=== PATIENT | male | born 1930 | race Caucasian/White ===

== ENCOUNTER → 2017-05-16 | Outpatient (CLI) | payer OTHER ==
[~2017-05-16] MED LIST: ADENOSINE 60 MG in GIVE UN-DILUTED 0 ML IV ONE; ADENOSINE 90 MG/30 ML INJ IV ONE; ATEN-60 PO; HYDR-4663 PO; WARF5TAB71 PO
== END | disposition home or self-care (01) ==
LOC: Rad HDHVI 09:55
PROVIDERS: ATTEND Internal Medicine Cardiovascular Disease
DX: I48.2 Chronic atrial fibrillation (principal); I25.10 Atherosclerotic heart disease of native coronary artery without angina pectoris; G20 Parkinson's disease; I11.0 Hypertensive heart disease with heart failure; I50.30 Unspecified diastolic (congestive) heart failure
CPT/HCPCS: 78452; 93017; 96374; A9500; J0153

== ENCOUNTER → 2017-05-22 | Outpatient (CLI) | payer OTHER ==
[~2017-05-22] MED LIST changes: -ADENOSINE 60 MG in GIVE UN-DILUTED 0 ML IV ONE; -ADENOSINE 90 MG/30 ML INJ IV ONE
== END | disposition home or self-care (01) ==
LOC: Rad HDHVI 13:52
PROVIDERS: ATTEND Internal Medicine Cardiovascular Disease
DX: I48.2 Chronic atrial fibrillation (principal); I11.0 Hypertensive heart disease with heart failure; I50.23 Acute on chronic systolic (congestive) heart failure
CPT/HCPCS: 93306

== ENCOUNTER 2020-03-13 16:50 | Inpatient (IN) | payer OTHER ==
[~2020-03-13] VITALS: Ht 172.7 cm; Wt 66.4 kg
[~2020-03-13 16:50] MED LIST changes: -HYDR-4663 PO; +HYDR-4833 PO
[2020-03-13] MEDS ORDERED: ACETAMINOPHEN 500 MG TAB PO ONE (17:15)
[2020-03-13] MEDS ORDERED: ACETAMINOPHEN 325 MG TAB PO ONE (17:15)
[2020-03-13 17:33] LABS: Hematocrit 39.4 % (41.0-53.0); Mean Corpuscular Hemoglobin 32.8 pg (28.0-32.0); Mean Corpuscular Volume 99.7 fL (80.0-100.0); Platelet Count (auto) 151 10^3/uL (140-450); Red Blood Cells 3.95 10^6/uL (4.5-5.90); Red Cell Distribution Width 12.9 % (11.8-14.3); White Blood Cell 23.2 10^3/uL (4.4-10.8)
[2020-03-13 17:35] LABS: Basophils % (manual) 0 (0.0-2.0); Blast Cells 0; Eosinophils % (manual) 0 (0-7); Metamyelocytes % 0; Monocytes % (manual) 0 (0-12); Myelocytes % 0; Promyelocytes % 0
[2020-03-13 17:47] LABS: Alanine Aminotransferase < 6 U/L (16-61); Albumin 2.7 g/dL (3.4-5.0); Anion Gap 5 (5-15); Aspartate Aminotransferase 23 U/L (15-37); BUN/Creatinine Ratio 23.1; Blood Urea Nitrogen 30 mg/dL (7-18); Calcium 8.2 mg/dL (8.5-10.1); Carbon Dioxide 28 mmol/L (21-32); Chloride 105 mmol/L (98-107); GFR African American 67 mL/min; GFR Non-African American 56 mL/min; Glucose 105 mg/dL (74-106); Magnesium 2.4 mg/dL (1.6-2.6); Sodium 138 mmol/L (136-145)
[2020-03-13 17:52] LABS: Alkaline Phosphatase 79 U/L (45-117); Bilirubin, Total 0.7 mg/dL (0.2-1.0); Total Protein 6.9 g/dL (6.4-8.2)
[2020-03-13 18:00] LABS: Band Neutrophils % (manual) 1; Lymphocytes % (manual) 65 (10.0-50.0); Reactive Lymphocytes 2
[2020-03-13 18:08] LABS: Urine Bacteria NONE SEEN /hpf (None Seen); Urine Blood 2+ /uL (Negative); Urine Hyaline Cast FEW /lpf (0 - 2); Urine Mucus FEW (None Seen); Urine Specific Gravity 1.021 (1.001-1.035); Urine WBC 11 /hpf (0 - 3)
[2020-03-13 18:16] LABS: Lactate Dehydrogenase 278 U/L (87-241)
[2020-03-13 18:27] LABS: CRP High Sensitivity > 19.0 mg/dL (< 0.3)
[2020-03-13] MEDS ORDERED: ACETAMINOPHEN 500 MG TAB PO PRN (19:00)
[2020-03-13] MEDS ORDERED: methylPREDNISolone SOD SUCC 125 MG/2 ML VL IV ONE (19:00)
[2020-03-13] MEDS ORDERED: NITROGLYCERIN 0.4 MG SL TAB SL PRN (19:00)
[2020-03-13] MEDS ORDERED: FUROSEMIDE 40 MG/4 ML VIAL IV ONE (19:00)
[2020-03-13] MEDS ORDERED: LACTULOSE 20Gm/30ML SOLN PO PRN ×2 (19:00)
[2020-03-13] MEDS ORDERED: MORPHINE SULF INJ 2 MG/ML SYRINGE 1ML IV PRN (19:00)
[2020-03-13] MEDS ORDERED: ALBUTEROL SULF 2.5 MG/0.5ML(0.5%) NEB SOLN NEB PRN (19:00)
[2020-03-13] MEDS ORDERED: ALBUTEROL SULF HFA 90MCG INH 200DOSE IN SCH (22:00)
[2020-03-14] MEDS: CLINDAMYCIN 600MG IV 50 ML IV SCH ×4 (01:00→22:25)
[2020-03-14] MEDS: SODIUM CHLOR 0.9% PF (SALINE LOCK) 10ML VIAL/SYR IV SCH ×4 (01:01→22:25)
[2020-03-14] MEDS: ENOXAPARIN SOD 80 MG/0.8ML SYRINGE SC SCH ×2 (01:02→09:54)
[2020-03-14] MEDS: CARVEDILOL 3.125 MG TAB PO SCH ×3 (01:02→22:00)
[2020-03-14 08:38] LABS: Hematocrit 41.2 % (41.0-53.0); Hemoglobin 13.8 g/dL (13.5-17.5); Mean Corpuscular Hemoglobin 33.5 pg (28.0-32.0); Mean Corpuscular Hgb Conc. 33.4 g/dL (32.0-36.0); Mean Corpuscular Volume 100.2 fL (80.0-100.0); Platelet Count (auto) 166 10^3/uL (140-450); Red Blood Cells 4.11 10^6/uL (4.5-5.90); Red Cell Distribution Width 12.8 % (11.8-14.3); White Blood Cell 22.9 10^3/uL (4.4-10.8)
[2020-03-14 08:53] LABS: Band Neutrophils % (manual) 0; Basophils % (manual) 0 (0.0-2.0); Blast Cells 0; Eosinophils % (manual) 0 (0-7); Metamyelocytes % 0; Monocytes % (manual) 0 (0-12); Myelocytes % 0; Promyelocytes % 0
[2020-03-14 08:55] LABS: Albumin 2.6 g/dL (3.4-5.0); Anion Gap 5 (5-15); Blood Urea Nitrogen 37 mg/dL (7-18); Calcium 8.5 mg/dL (8.5-10.1); Carbon Dioxide 30 mmol/L (21-32); Chloride 105 mmol/L (98-107); Glucose 121 mg/dL (74-106); Potassium 3.8 mmol/L (3.5-5.1); Sodium 140 mmol/L (136-145)
[2020-03-14 08:58] LABS: Alanine Aminotransferase 7 U/L (16-61); BUN/Creatinine Ratio 27.6; GFR African American 65 mL/min; GFR Non-African American 54 mL/min
[2020-03-14 09:12] LABS: Alkaline Phosphatase 80 U/L (45-117); Aspartate Aminotransferase 20 U/L (15-37); Bilirubin, Total 0.6 mg/dL (0.2-1.0)
[2020-03-14] MEDS: ZINC SULFATE 220mg CAP or TAB PO SCH (09:54)
[2020-03-14] MEDS: ASCORBIC ACID 1,000 MG TAB PO SCH (09:55)
[2020-03-14] MEDS: CHOLECALCIFEROL (VITD3) 1,000UNIT=25mCg TAB PO SCH (09:56)
[2020-03-14] MEDS ORDERED: levoFLOXacin 500MG 100 ML IV SCH (10:00)
[2020-03-14] MEDS ORDERED: ATEN-60 PO (10:36)
[2020-03-14] MEDS ORDERED: CARB25TA3 PO (10:36)
[2020-03-14 10:44] LABS: Reactive Lymphocytes 2
[2020-03-14 10:45] LABS: Lymphocytes % (manual) 66 (10.0-50.0)
[2020-03-14] MEDS ORDERED: DexAMETHasone 4 MG TAB PO ONE (13:00)
[2020-03-14] MEDS: CARBIDOPA W LEVODOPA 25/100mg TABLET PO SCH ×2 (14:20→22:25)
[2020-03-14] MEDS: FUROSEMIDE 20 MG/2 ML VIAL IV SCH (19:08)
[2020-03-14 19:57] LABS: INR 6.9 (0.9-1.15)
[2020-03-14] MEDS: DOXYCYCLINE 100 MG TAB/CAP PO SCH (22:25)
[2020-03-14] MEDS: DexAMETHasone 4 MG TAB PO SCH (22:25)
--- NOTE | 2020-03-15 01:23 | NUR ---
I WAS CALLED TO BEDSIDE DUE TO PT DESATURATING WHILE SLEEPING ON AN 8L SIMPLE MASK. HE WAS CHANGED OVER TO A 10L OXYMIZER AND TOLERATING IT WELL. WILL CONTINUE TO MONITOR. Addendum: 03/15/20 at 0128 by HARI MURRAY RT Amended: Links added.
[2020-03-15] MEDS: FUROSEMIDE 20 MG/2 ML VIAL IV SCH ×2 (06:08→18:46)
[2020-03-15] MEDS: SODIUM CHLOR 0.9% PF (SALINE LOCK) 10ML VIAL/SYR IV SCH ×3 (06:08→22:00)
[2020-03-15] MEDS: CLINDAMYCIN 600MG IV 50 ML IV SCH (06:08)
[2020-03-15] MEDS: CARBIDOPA W LEVODOPA 25/100mg TABLET PO SCH ×2 (06:12→14:40)
--- NOTE | 2020-03-15 07:35 | NUR ---
Respiratory note: PT in ER bed 4 in isolation room due to COVID-19 precautions. HR 116, RR 30, SPO2 92% on 12lpm oxymizer, tolerating well. Pt laying comfortably in bed, does not appear to in any distress. RN at bedside. Pt connected to bedside monitor. Will continue to monitor.
[2020-03-15 09:26] LABS: Hematocrit 41.7 % (41.0-53.0); Hemoglobin 13.8 g/dL (13.5-17.5); Mean Corpuscular Hemoglobin 32.9 pg (28.0-32.0); Mean Corpuscular Hgb Conc. 33.2 g/dL (32.0-36.0); Platelet Count (auto) 216 10^3/uL (140-450); Red Blood Cells 4.21 10^6/uL (4.5-5.90); Red Cell Distribution Width 12.8 % (11.8-14.3); White Blood Cell 28.1 10^3/uL (4.4-10.8)
[2020-03-15 09:30] LABS: Band Neutrophils % (manual) 0; Basophils % (manual) 0 (0.0-2.0); Blast Cells 0; Eosinophils % (manual) 0 (0-7); Metamyelocytes % 0; Monocytes % (manual) 0 (0-12); Myelocytes % 0; Promyelocytes % 0
[2020-03-15 09:39] LABS: Albumin 2.8 g/dL (3.4-5.0); Anion Gap 7 (5-15); Blood Urea Nitrogen 48 mg/dL (7-18); Calcium 8.9 mg/dL (8.5-10.1); Carbon Dioxide 28 mmol/L (21-32); Chloride 104 mmol/L (98-107); Glucose 127 mg/dL (74-106); Magnesium 2.6 mg/dL (1.6-2.6); Potassium 3.4 mmol/L (3.5-5.1); Sodium 139 mmol/L (136-145)
[2020-03-15] MEDS: ZINC SULFATE 220mg CAP or TAB PO SCH (09:43)
[2020-03-15 09:44] LABS: Partial Thromboplastin Time 66.2 sec (23.64-32.05)
[2020-03-15 09:48] LABS: Alanine Aminotransferase 8 U/L (16-61); Alkaline Phosphatase 82 U/L (45-117); Aspartate Aminotransferase 21 U/L (15-37); BUN/Creatinine Ratio 32.4; Bilirubin, Total 0.6 mg/dL (0.2-1.0); Creatine Kinase IFCC 146 U/L (39-308); GFR African American 58 mL/min; GFR Non-African American 48 mL/min; Lactate Dehydrogenase 246 U/L (87-241); Phosphorus 3.3 mg/dL (2.5-4.90); Total Protein 7.2 g/dL (6.4-8.2); Uric Acid 7.6 mg/dL (3.5-7.2)
[2020-03-15 09:50] LABS: INR > 8.0 (0.9-1.15)
[2020-03-15] MEDS: CARVEDILOL 3.125 MG TAB PO SCH (10:22)
[2020-03-15] MEDS: DOXYCYCLINE 100 MG TAB/CAP PO SCH (10:23)
[2020-03-15] MEDS: CHOLECALCIFEROL (VITD3) 1,000UNIT=25mCg TAB PO SCH (10:23)
[2020-03-15] MEDS: DexAMETHasone 4 MG TAB PO SCH (10:23)
[2020-03-15] MEDS: ASCORBIC ACID 1,000 MG TAB PO SCH (10:23)
[2020-03-15] MEDS ORDERED: VANCOMYCIN PER PHARMACY 0 MG IV SCH (10:30)
[2020-03-15] MEDS ORDERED: phytonadione 10 MG in SODIUM CHL 0.9% 50 ML IV ONE (10:30)
[2020-03-15] MEDS ORDERED: LACTATED RINGER'S 1,000 ML IV ONE (10:45)
[2020-03-15] MEDS ORDERED: POTASSIUM CHL 20 Meq TABLET PO ONE (10:45)
[2020-03-15 12:23] LABS: Lymphocytes % (manual) 53 (10.0-50.0); Reactive Lymphocytes 1
[2020-03-15] MEDS: HYDROCORTISONE SOD SUCC 100 MG/2ML INJ VIAL IV SCH ×2 (13:15→18:26)
[2020-03-15] MEDS: MEROPENEM 1GM IVPB 100 ML IV SCH (13:29)
[2020-03-15] MEDS: SODIUM CHLORIDE 0.9% 1,000 ML IV SCH (13:29)
[2020-03-15] MEDS: VANCOMYCIN 1GM/250ML 250 ML IV SCH (14:40)
--- NOTE | 2020-03-15 17:22 | NUR ---
WOUND CARE NOTE: Wound care in to see patient per wound care request regarding sacral wound that are noted present on admission. ED nurse took photograph of patient's wound upon admission for reference. Patient is 89 years old male with admitting diagnosis of Pna, Heart Failure. Patient is resting in ED Rm. #4. Patient is awake, alert and able to follow direction. Patient is in no stated pain at this time and he appears to be in no pain using Keller Cobb Faces pain Scale. He's able to assist in turning and repositioning and his Shan score is 15. Noted patient's L distal sacrum has 2x1.2cm open full thickness wound with no measurable depth. Wound bed is red with yellow, lily wound with non-blanchable erythema with multi skin erosion to distal Rt and Lt buttocks. 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 Lily care given, applied Z Guard cream and covered with Opti foam gentle dressing. New photograph of wounds are taken for reference. Patient's Rt nose bridge also noted with redness with the small oval shape of of eye glasses at nose bridge area, area is clean and dry, left open to air. Patient tolerated, repositioned patient for comfort. RECOMMENDATION: Nursing to continue with BID/PRN cleaning and application of Z Guard cream sacral, buttocks, per MD order, Dietary consult, frequent turning and repositioning schedule as condition permits, redistribute pressure points with pillows, air mattress (ordered), frequent lily care/check, keep clean and dry, elevate heels on pillows, continue monitoring by wound care while patient is hospitalized. Addendum: 03/15/20 at 1830 by Martine Kahn RN Amended: Links added.
--- NOTE | 2020-03-15 17:55 | NUR ---
AIR MATTRESS: Air mattress ordered at [facility]. ETA 03/15/20 @ 2351. Reference #[id number]. Please call Douglas Maurice at if needed to follow up.
--- NOTE | 2020-03-15 19:50 | NUR ---
Respiratory note: AT BEDSIDE FOR OXYGEN ASSESSMENT. PT ON 11L OXYMIZER, SPO2 NOTED BETWEEN 97-98%. PT TITRATED TO 10L ON OXYMIZER, SPO2 NOTED BETWEEN 92-94%. PT REMAINS ON 10L OXYMIZER, RN AWARE. WILL CONTINUE TO MONITOR.
[2020-03-16] MEDS: MEROPENEM 1GM IVPB 100 ML IV SCH ×3 (00:29→23:05)
[2020-03-16] MEDS: HYDROCORTISONE SOD SUCC 100 MG/2ML INJ VIAL IV SCH ×3 (00:29→11:09)
[2020-03-16] MEDS: SODIUM CHLORIDE 0.9% 1,000 ML IV SCH ×2 (02:02→10:41)
[2020-03-16] MEDS: FUROSEMIDE 20 MG/2 ML VIAL IV SCH ×2 (06:47→17:39)
[2020-03-16] MEDS: SODIUM CHLOR 0.9% PF (SALINE LOCK) 10ML VIAL/SYR IV SCH ×3 (06:47→22:20)
[2020-03-16] MEDS: CARBIDOPA W LEVODOPA 25/100mg TABLET PO SCH ×4 (06:48→22:21)
[2020-03-16] MEDS: ZINC SULFATE 220mg CAP or TAB PO SCH (07:36)
[2020-03-16] MEDS: CARVEDILOL 3.125 MG TAB PO SCH ×2 (07:36)
[2020-03-16] MEDS: POTASSIUM CHL 20 Meq TABLET PO SCH (07:36)
[2020-03-16] MEDS: CHOLECALCIFEROL (VITD3) 1,000UNIT=25mCg TAB PO SCH (07:37)
[2020-03-16] MEDS: ASCORBIC ACID 1,000 MG TAB PO SCH (07:37)
[2020-03-16 08:42] LABS: Hematocrit 44.9 % (41.0-53.0); Hemoglobin 14.8 g/dL (13.5-17.5); Mean Corpuscular Hemoglobin 32.9 pg (28.0-32.0); Mean Corpuscular Volume 99.9 fL (80.0-100.0); Platelet Count (auto) 223 10^3/uL (140-450); Red Blood Cells 4.49 10^6/uL (4.5-5.90); Red Cell Distribution Width 13.3 % (11.8-14.3); White Blood Cell 29.9 10^3/uL (4.4-10.8)
[2020-03-16 08:47] LABS: Basophils % (manual) 0 (0.0-2.0); Blast Cells 0; Eosinophils % (manual) 0 (0-7); Metamyelocytes % 0; Myelocytes % 0; Promyelocytes % 0; Reactive Lymphocytes 0
[2020-03-16 09:08] LABS: Potassium 3.5 mmol/L (3.5-5.1)
[2020-03-16 09:11] LABS: INR 1.16 (0.9-1.15); Partial Thromboplastin Time 33.2 sec (23.64-32.05)
[2020-03-16 09:12] LABS: Band Neutrophils % (manual) 7; Lymphocytes % (manual) 50 (10.0-50.0); Monocytes % (manual) 2 (0-12)
[2020-03-16 09:15] LABS: Albumin 2.8 g/dL (3.4-5.0); BUN/Creatinine Ratio 32.8; Calcium 9.2 mg/dL (8.5-10.1); Magnesium 2.6 mg/dL (1.6-2.6); Phosphorus 2.6 mg/dL (2.5-4.90); Total Protein 7.2 g/dL (6.4-8.2)
--- NOTE | 2020-03-16 09:30 | NUR ---
Respiratory note: PT ASSESSED. HR 133, RR 28, POX 96% ON 12L OXYMIZER, BREATH SOUNDS ARE COARSE/DIMINISHED. NO INCREASED WOB OR DISTRESS NOTED AT THIS TIME. EARLIER POX READING NOT ACCURATE.
[2020-03-16] MEDS ORDERED: MEROPENEM 500MG IVPB 50 ML IV SCH (10:00)
[2020-03-16] MEDS ORDERED: METOPROLOL TARTRATE 1MG/1ML-5ML VIAL IV PRN (10:30)
--- NOTE | 2020-03-16 12:24 | NUR ---
Nutrition Assessment Notes Please refer to link for full assessment notes. Est Energy needs: 7694-5167 kcals (25-30 kcal/kgBW) d/t pt P/U Est Protein needs: 93-116 gms/day (1.2-1.5 gm/kgBW) d/t pt P/U Will continue to monitor and reassess prn. Addendum: 03/16/20 at [address] Amended: Links added.
[2020-03-16] MEDS: VANCOMYCIN 1GM/250ML 250 ML IV SCH (14:15)
--- NOTE | 2020-03-16 18:45 | NUR ---
Admit to [facility] ROS[facility] admitted to [facility] via gurney on campus monitor, and portable 02. Patient transfered to bed, connected to unit monitoring and oxygen, and weighed by bedscale. Patient oriented to [facility], primary RN, unit, room, bed, and unit policies regarding patient care and visiting hours. Patient placed on Novel Respiratory Isoloation and educated on rounding and calling nursing station for assistance. All questions and concerns addressed, patient verbalized understanding. Vital Signs as follow: HR 133, BP 135/85, RR 20, O2 sats 92% on 12L Oxymizer, temp 98.9 oral. Weight 66Kg, 147lbs.
[2020-03-16 19:00] VITALS: BP 109/74
--- NOTE | 2020-03-16 19:10 | NUR ---
OPENING SHIFT RECEIVED REPORT FROM DAY SHIFT RN. ASSUMED CARE OF PATIENT. PATIENT IN BED WATCHING TV WITH NO SIGNS OR SYMPTOMS OF SOB, PAIN OR DISTRESS. CURRENTLY ON HIGH FLOW NASAL CANNULA 55L / FI02 80%, 02 SAT - 90%. LEFT HAND IV - CLEAN/DRY/INTACT. UPDATED PATIENT ON PLAN OF CARE. REPOSITIONED FOR COMFORT. BED IN LOWEST POSITION, SIDE RAILS UP X2. CALL LIGHT WITHIN REACH. WILL CONTINUE TO MONITOR. Addendum: 03/17/20 at 0057 by SHARON NUR RN RN *DISREGARD - WRONG PATIENT.
--- NOTE | 2020-03-16 19:14 | NUR ---
END OF SHIFT Report to be given to [facility] Sarath CROOK. Endorsed care of patient. Patient sitting up eating dinner, no s/s of distress noted.
--- NOTE | 2020-03-16 19:20 | NUR ---
OPENING SHIFT RECEIVED REPORT FROM DAY SHIFT RN. ASSUMED CARE OF PATIENT. PATIENT IN BED RESTING WITH NO SIGNS OR SYMPTOMS OF SOB, PAIN OR DISTRESS. CURRENTLY ON OXYMIZER 12L, 02 SAT - 91%. LEFT FOREARM IV - CLEAN/DRY/INTACT. UPDATED PATIENT ON PLAN OF CARE. REPOSITIONED FOR COMFORT. BED IN LOWEST POSITION, SIDE RAILS UP X2. CALL LIGHT WITHIN REACH. WILL CONTINUE TO MONITOR.
[2020-03-16 20:00] VITALS: BP 136/89
--- NOTE | 2020-03-16 20:27 | NUR ---
SPOKE WITH DR. DIA MADE AWARE OF PATIENTS HR SUSTAINING IN THE 140'S AFIB. RECEIVED ORDERS TO START PATIENT ON AMIODARONE GTT PER PROTOCOL. TORB. WILL CONTINUE TO MONITOR.
[2020-03-16] MEDS ORDERED: AMIODARONE HCL 150 MG in D5W 5% 100 ML IV ONE (20:50)
[2020-03-16] MEDS ORDERED: AMIODARONE 450mg/250ml AE 250 ML IV SCH (21:00)
[2020-03-16] MEDS ORDERED: CARVEDILOL 3.125 MG TAB PO SCH (22:00)
--- NOTE | 2020-03-16 22:05 | NUR ---
RESPIRATORY PATIENT PLACED ON NON REBREATHER AND OXYMIZER RECOMMENDED PER RT DUE TO HIGH FLOW MACHINE BEING UNAVAILABLE. PATIENT TOLERATING WELL, 02 SAT - 97%. WILL CONTINUE TO MONITOR.
--- NOTE | 2020-03-16 22:10 | NUR ---
PM CARE PERFORMED PM CARE WITH CHG WIPES AND WASH CLOTHS TO THE FACE. PARTIAL LINEN CHANGE AND GOWN CHANGED. REPOSITIONED FOR COMFORT. SKIN REASSESSED AT THIS TIME. WILL CONTINUE TO MONITOR.
[2020-03-16] MEDS: DexAMETHasone SOD PHOS 4 MG/1ML SDV INJ IV SCH (22:20)
[2020-03-16] MEDS: ENOXAPARIN SOD 80 MG/0.8ML SYRINGE SC SCH (22:21)
[2020-03-16] MEDS ORDERED: AMIODARONE HCL (50 MG/ ML) 3 ML VIAL IV ONE (23:51)
[2020-03-17] VITALS (7 sets, daily range): BP systolic 102–130; BP diastolic 55–78
--- NOTE | 2020-03-17 03:30 | NUR ---
STARTED AMIODARONE BOLUS PATIENT HR SUSTAINING IN THE 150'S. BP: 143/92. WILL CONTINUE TO MONITOR.
[2020-03-17 03:58] LABS: Basophils # (auto) 0 10 ^3/uL (0-0.2); Basophils % (auto) 0.1 % (0.0-2.0); Eosinophils # (auto) 0 10 ^3/uL (0-0.8); Hematocrit 39.5 % (41.0-53.0); Lymphocytes # (auto) 7.5 10 ^3/uL (0.4-5.4); Lymphocytes % (auto) 38.2 % (10.0-50.0); Mean Corpuscular Hemoglobin 32.8 pg (28.0-32.0); Mean Corpuscular Volume 99.4 fL (80.0-100.0); Monocytes # (auto) 0.2 10 ^3/uL (0-1.3); Neutrophils # (auto) 11.9 10 ^3/uL (1.6-8.6); Neutrophils % (auto) 60.7 % (37.0-80.0); Nucleated Red Blood Cells % 0.2 %; Platelet Count (auto) 164 10^3/uL (140-450); Red Blood Cells 3.97 10^6/uL (4.5-5.90); Red Cell Distribution Width 12.8 % (11.8-14.3); White Blood Cell 19.6 10^3/uL (4.4-10.8)
--- NOTE | 2020-03-17 04:00 | NUR ---
AMIODARONE GTT STARTED AT 1MG/MIN. WILL CONTINUE TO MONITOR.
[2020-03-17 04:15] LABS: INR 1.17 (0.9-1.15)
[2020-03-17 04:17] LABS: Potassium 3.5 mmol/L (3.5-5.1)
[2020-03-17 04:26] LABS: Albumin 2.1 g/dL (3.4-5.0); BUN/Creatinine Ratio 37.1; Bilirubin, Total 1.1 mg/dL (0.2-1.0); Calcium 7.9 mg/dL (8.5-10.1); Total Protein 5.9 g/dL (6.4-8.2)
[2020-03-17] MEDS: SODIUM CHLOR 0.9% PF (SALINE LOCK) 10ML VIAL/SYR IV SCH ×3 (06:00→22:00)
[2020-03-17] MEDS: FUROSEMIDE 20 MG/2 ML VIAL IV SCH ×2 (06:00→18:00)
[2020-03-17] MEDS: CARBIDOPA W LEVODOPA 25/100mg TABLET PO SCH ×3 (06:00→22:00)
[2020-03-17] MEDS: SODIUM CHLORIDE 0.9% 1,000 ML IV SCH (06:15)
--- NOTE | 2020-03-17 07:31 | NUR ---
END OF SHIFT REPORT GIVEN TO DAY SHIFT RN. CARE ENDORSED.
--- NOTE | 2020-03-17 07:35 | NUR ---
REPORT REPORT RECEIVED FROM JUANA RN, CARE ASSUMED. PT RESTING, NO DISTRESS NOTED.
--- NOTE | 2020-03-17 08:00 | NUR ---
INITIAL CONTACT PT OBSERVED RESTING IN BED WITH CALL LIGHT WITHIN REACH. NO DISTRESS NOTED AT THIS TIME. AFEBRILE. PATIENT IS ALERT AND ORIENTED. ABLE TO REPOSITION SELF WITH ASSISTANCE. DENIES PAIN. ATRIAL FIBRILLATION NOTED ON BEDSIDE MONITOR, BLOOD PRESSURE STABLE. PULSES PALPABLE BILATERAL RADIAL AND PEDAL. LUNGS DIMINISHED ANTERIORLY, OXYGEN SATURATION 100% ON 15 L OXYMIZER AND NON-REBREATHER MASK. DENIES SHORTNESS OF BREATH. PT USES URINAL AND BEDPAN. SEE SKIN/WOUND ASSESSMENT. FREQUENT TURNING SCHEDULE. ALARMS IN PLACE, WILL CONTINUE TO MONITOR.
--- NOTE | 2020-03-17 09:17 | NUR ---
OXYGENATION RT AT BEDSIDE TO PLACE PATIENT ON HIGH FLOW DEVICE.
--- NOTE | 2020-03-17 09:30 | NUR ---
PT PLACED ON HIGH FLOW NC DEVICE FOR 20 MINS. REMOVED HIGH FLOW AT APPROXIMATELY 0945 DUE TO EQUIP ERROR, INSUFFICIENT FLOW TO MEET PT'S INSPIRATORY FLOW DEMAND. PLACED PT BACK ON 15L OXYMIZER SPO2 94%. AMBREEN MATHIS MADE AWARE.
[2020-03-17] MEDS: AMIODARONE 450mg/250ml AE 250 ML IV SCH ×2 (10:00→18:00)
[2020-03-17] MEDS ORDERED: AMIODARONE HCL 200 MG TAB PO SCH (10:00)
--- NOTE | 2020-03-17 10:43 | NUR ---
MD VISIT DR.SHAIKH KING. AWARE OF AMIODARONE DRIP AND PO MEDICATIONS. MD AWARE OF OXYGEN STATUS. NEW MEDICATION ORDERS RECEIVED. MD PLANS TO RETURNED THIS AFTERNOON TO ROUND AGAIN.
[2020-03-17] MEDS: MEROPENEM 1GM IVPB 100 ML IV SCH ×2 (10:57→23:00)
[2020-03-17] MEDS: CHOLECALCIFEROL (VITD3) 1,000UNIT=25mCg TAB PO SCH (10:58)
[2020-03-17] MEDS: ENOXAPARIN SOD 80 MG/0.8ML SYRINGE SC SCH ×2 (10:58→22:00)
[2020-03-17] MEDS: ASCORBIC ACID 1,000 MG TAB PO SCH (10:59)
[2020-03-17] MEDS: ZINC SULFATE 220mg CAP or TAB PO SCH (10:59)
[2020-03-17] MEDS: PANTOPRAZOLE 40 MG TAB PO SCH (10:59)
[2020-03-17] MEDS: POTASSIUM CHL 20 Meq TABLET PO SCH (11:00)
[2020-03-17] MEDS: CARVEDILOL 3.125 MG TAB PO SCH ×2 (11:03→22:00)
[2020-03-17] MEDS: DexAMETHasone SOD PHOS 4 MG/1ML SDV INJ IV SCH ×2 (11:03→22:00)
[2020-03-17] MEDS: ALBUTEROL SULF HFA 90MCG INH 200DOSE IN SCH ×2 (13:46→22:00)
--- NOTE | 2020-03-17 14:00 | NUR ---
SPECIALTY AIR MATTRESS NEW BED WITH MATTRESS DELIVERED. ASIF [employer] SUPPORT TECHNICIAN NURSE NOTIFIED OF PATIENT BEING COVID POSITIVE. UNABLE TO TRANSFER PATIENT ON TO NEW BED DUE TO HIGH OXYGEN REQUIREMENTS AND HIGH EXPOSURE RISK TO STAFF AND OTHER PATIENTS. WOUND CARE NURSE AWARE. OK TO PLACE PT ON BED WHEN MOVING OFF UNIT. CONTINUE TO PERFORM FREQUENT TURNING.
[2020-03-17] MEDS ORDERED: SODIUM CHLORIDE 0.9% 1,000 ML IV SCH (14:15)
[2020-03-17] MEDS: VANCOMYCIN 1GM/250ML 250 ML IV SCH (14:26)
[2020-03-17] MEDS: Ensure Enlive Strawberry 8oz Bottle PO SCH (18:00)
--- NOTE | 2020-03-17 18:00 | NUR ---
CARES PARTIAL LINEN CHANGE COMPLETE. SKIN REASSESSMENT PERFORMED. ALL DRESSINGS INTAKE. PATIENT ABLE TO ASSIST WITH TURNING. PT REPOSITIONED IN BED, LOCKED IN LOWEST POSITION, CALL LIGHT AND PERSONAL BELONGINGS WITHIN REACH. PT INSTRUCTED TO CALL FOR ASSISTANCE. PT VERBALIZED UNDERSTANDING.
--- NOTE | 2020-03-17 18:20 | NUR ---
CONSENTS BLOOD CONSENT FOR CONVALESCENT PLASMA OBTAINED AND PLACED IN CHART.
--- NOTE | 2020-03-17 19:04 | NUR ---
PT IS CURRENTLY ON 12L OXYMIZER WITH SPO2 MAINTAINED AT 93%. PT IS AWAKE AND ALERT. NRB AND MDI AT BEDSIDE. WILL CONTINUE WITH NEXT SCHEDULED MDI.
--- NOTE | 2020-03-17 19:15 | NUR ---
REPORT REPORT GIVEN TO JUANA CROOK, CARE ENDORSED.
--- NOTE | 2020-03-17 19:20 | NUR ---
OPENING SHIFT RECEIVED REPORT FROM DAY SHIFT RN. ASSUMED CARE OF PATIENT. PATIENT IN BED WATCHING TV WITH NO SIGNS OR SYMPTOMS OF SOB, PAIN OR DISTRESS. CURRENTLY ON OXYMIZER 12L, 02 SAT - 91%. LEFT WRIST AND RIGHT FOREARM IV - CLEAN/DRY/INTACT. UPDATED PATIENT ON PLAN OF CARE. REPOSITIONED FOR COMFORT. BED IN LOWEST POSITION, SIDE RAILS UPX2, CALL LIGHT WITHIN REACH. WILL CONTINUE TO MONITOR.
--- NOTE | 2020-03-17 21:33 | NUR ---
SPOKE WITH DR. CHAMPION RECEIVED APPROVAL TO GIVE CONVALESCENT PLASMA.
--- NOTE | 2020-03-17 22:10 | NUR ---
PATIENT DESATURATION 02 SAT SUSTAINING AT 86%. PLACE PATIENT ON NONREBREATHER AND OXYMIZER 15L. WILL CONTINUE TO MONITOR.
--- NOTE | 2020-03-17 23:30 | NUR ---
SPOKE WITH BLOOD BANK MADE AWARE OF CONVALESCENT PLASMA ORDER. GRANT WRITER WILL CALL [facility]. AWAITING CALL BACK IN REGARDS TO CONVALESCENT PLASMA DUE TO PATIENTS BLOOD TYPE. WILL CONTINUE TO MONITOR.
[2020-03-18] VITALS (10 sets, daily range): BP systolic 103–126; BP diastolic 60–81
--- NOTE | 2020-03-18 01:15 | NUR ---
RT AT BEDSIDE PATIENT PLACE ON HIGH FLOW NASAL CANNULA 60L / 80%, 02 SAT - 92%. WILL CONTINUE OT MONITOR.
--- NOTE | 2020-03-18 03:50 | NUR ---
IV INFILTRATION / REMOVAL AMIODARONE GTT STOPPED. LEFT WRIST IV INFILTRATED, NOTED REDNESS AND LEAKAGE. IV REMOVED, CATHETER INTACT. PATIENT TOLERATED WELL. WILL CONTINUE TO MONITOR.
[2020-03-18] MEDS: AMIODARONE 450mg/250ml AE 250 ML IV SCH (04:00)
[2020-03-18 04:09] LABS: Basophils # (auto) 0 10 ^3/uL (0-0.2); Eosinophils # (auto) 0 10 ^3/uL (0-0.8); Hematocrit 36.4 % (41.0-53.0); Hemoglobin 12.1 g/dL (13.5-17.5); Lymphocytes # (auto) 5.6 10 ^3/uL (0.4-5.4); Mean Corpuscular Hemoglobin 33.1 pg (28.0-32.0); Mean Corpuscular Hgb Conc. 33.3 g/dL (32.0-36.0); Mean Corpuscular Volume 99.3 fL (80.0-100.0); Monocytes # (auto) 0.2 10 ^3/uL (0-1.3); Monocytes % (auto) 1.5 % (0.0-12.0); Neutrophils # (auto) 9.7 10 ^3/uL (1.6-8.6); Neutrophils % (auto) 62.5 % (37.0-80.0); Nucleated Red Blood Cells % 0.1 %; Platelet Count (auto) 169 10^3/uL (140-450); Red Blood Cells 3.67 10^6/uL (4.5-5.90); Red Cell Distribution Width 13.1 % (11.8-14.3); White Blood Cell 15.5 10^3/uL (4.4-10.8)
--- NOTE | 2020-03-18 04:15 | NUR ---
IV INSERTION INSERTED LEFT INNER FOREARM IV 22G. AMIODARONE GTT RESTARTED. WILL CONTINUE TO MONITOR.
[2020-03-18 04:27] LABS: Albumin 1.9 g/dL (3.4-5.0); Calcium 7.7 mg/dL (8.5-10.1); Potassium 3.8 mmol/L (3.5-5.1)
[2020-03-18 04:31] LABS: BUN/Creatinine Ratio 38.2; Bilirubin, Total 0.8 mg/dL (0.2-1.0); Total Protein 5.5 g/dL (6.4-8.2)
[2020-03-18] MEDS: CARBIDOPA W LEVODOPA 25/100mg TABLET PO SCH ×3 (06:00→21:11)
[2020-03-18] MEDS: FUROSEMIDE 20 MG/2 ML VIAL IV SCH ×2 (06:00→18:03)
[2020-03-18] MEDS: SODIUM CHLOR 0.9% PF (SALINE LOCK) 10ML VIAL/SYR IV SCH ×3 (06:00→21:10)
[2020-03-18] MEDS: ALBUTEROL SULF HFA 90MCG INH 200DOSE IN SCH ×3 (06:16→22:25)
--- NOTE | 2020-03-18 07:31 | NUR ---
END OF SHIFT REPORT GIVEN TO DAY SHIFT RN. CARE ENDORSED.
--- NOTE | 2020-03-18 07:45 | NUR ---
OPENING Report received from Sarath LAIRD RN. Care initiated and initial assessment complete.
[2020-03-18] MEDS: Ensure Enlive Strawberry 8oz Bottle PO SCH ×3 (08:00→18:03)
--- NOTE | 2020-03-18 09:37 | NUR ---
ASSESSMENT MATRIX WORKER SPOKE WITH PT'S SPOUSE BETHANY TO OBTAIN COLLATERAL INFORMATION FOR INITIAL ASSESSMENT. PT IS A 89 YR OLD MALE ADMITTED FOR COVID, SEPSIS. HE HAS A HX OF PARKINSONS, PROSTATE CANCER, AFIB. 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 PT HAS 3 CHILDREN, 2 RESIDE OUT OF STATE, SON ML LIVES IN [place] BUT WORKS 7 DAYS A WEEK. BETHANY'S FATHER WAS RECENTLY ON HOSPICE WITH [facility], PT AND FAMILY HAVE AGREED FOR PT TO GO ON HOSPICE WELL POST DC. PT WAS INDEPENDENT WITH A WALKER PRIOR TO ADMISSION. PT'S PCP IS DR. العراقي AT [facility] IN [place]. HE DOES NOT HAVE AN AHCD, HE PLANS TO COMPLETE ONE WITH HOSPICE. BETHANY WILL BE TESTED FOR COVID TODAY. PLAN IS FOR PT TO DC ON HOSPICE, POSSIBLY TO SNF BUT SPOUSE AND PT PREFER TO HOME. SS TO CONTINUE TO MONITOR FOR DC NEEDS. Addendum: 03/18/20 at 0945 by TRISH MONTANA SS Amended: Links added.
--- NOTE | 2020-03-18 09:50 | NUR ---
CORBIN DE LA ROSA MD at bedside for evaluation and treatment. Further orders received and carried out.
[2020-03-18] MEDS: CHOLECALCIFEROL (VITD3) 1,000UNIT=25mCg TAB PO SCH (10:00)
--- NOTE | 2020-03-18 10:02 | NUR ---
Respiratory note: PT TAKEN OFF OF HFNC, AND PLACED ON A 12L OXYMIZER 82%. PT TOLERATING CHANGE WELL. SPO2 92%, HR 68, RR 26, BS CLEAR/DIMINISHED BILATERALLY. RN AWARE. WILL CONTINUE TO MONITOR PT.
[2020-03-18] MEDS: ASCORBIC ACID 1,000 MG TAB PO SCH (10:24)
[2020-03-18] MEDS: CARVEDILOL 3.125 MG TAB PO SCH ×2 (10:24→21:11)
[2020-03-18] MEDS: PANTOPRAZOLE 40 MG TAB PO SCH (10:24)
[2020-03-18] MEDS: DexAMETHasone SOD PHOS 4 MG/1ML SDV INJ IV SCH ×2 (10:24→21:09)
[2020-03-18] MEDS: ZINC SULFATE 220mg CAP or TAB PO SCH (10:24)
[2020-03-18] MEDS: POTASSIUM CHL 20 Meq TABLET PO SCH (10:24)
[2020-03-18] MEDS ORDERED: ENOXAPARIN SOD 80 MG/0.8ML SYRINGE SC ONE (10:30)
--- NOTE | 2020-03-18 10:50 | NUR ---
BM Patient had a medium sized, dark brown in color, bowel movement. Patient used bedside commode with moderate assistance.
[2020-03-18] MEDS: MEROPENEM 1GM IVPB 100 ML IV SCH (11:00)
[2020-03-18] MEDS ORDERED: ENOXAPARIN SOD 80 MG/0.8ML SYRINGE SC SCH ×2 (22:00)
--- NOTE | 2020-03-18 22:25 | NUR ---
Respiratory note: IN PTS ROOM IN FULL PPE DUW TO COVID-19 PRECAUTIONS. PLACED PT ON HFNC UNIT, UNIT CONNECTED TO RED OUTLET, O2 AND MEDICAL AIR WALL SOURCE. ALARMS ON PREETI HEATER ARE SET AND AUDIBLE. WATER LEVEL IS ADEQUATE. BREAKDOWN ON BRIDGE OF NOSE NOTED, REDNESS AND SOME SCABBING SEEN ON AFFECTED AREA. COMMUNICATED FINDINGS WITH AMBREEN SIEGEL.
[2020-03-19] VITALS (12 sets, daily range): BP systolic 93–131; BP diastolic 68–81
--- NOTE | 2020-03-19 00:16 | NUR ---
Respiratory note: At pts door for routine hfnc check, due to Covid-19 precautions. no changes made pt comfortably sleeping. Will continue to monitor.
[2020-03-19] MEDS: AMIODARONE 450mg/250ml AE 250 ML IV SCH (00:44)
[2020-03-19] MEDS: MEROPENEM 1GM IVPB 100 ML IV SCH ×3 (00:50→23:16)
[2020-03-19 04:33] LABS: Basophils # (auto) 0 10 ^3/uL (0-0.2); Basophils % (auto) 0.1 % (0.0-2.0); Eosinophils # (auto) 0 10 ^3/uL (0-0.8); Hematocrit 40.7 % (41.0-53.0); Hemoglobin 13.7 g/dL (13.5-17.5); Lymphocytes % (auto) 42.3 % (10.0-50.0); Mean Corpuscular Hemoglobin 33.3 pg (28.0-32.0); Mean Corpuscular Hgb Conc. 33.6 g/dL (32.0-36.0); Mean Corpuscular Volume 99.2 fL (80.0-100.0); Monocytes # (auto) 0.3 10 ^3/uL (0-1.3); Neutrophils % (auto) 55.6 % (37.0-80.0); Platelet Count (auto) 206 10^3/uL (140-450); Red Cell Distribution Width 13.1 % (11.8-14.3); White Blood Cell 14.3 10^3/uL (4.4-10.8)
[2020-03-19 04:52] LABS: Potassium 3.9 mmol/L (3.5-5.1)
[2020-03-19 04:57] LABS: BUN/Creatinine Ratio 35.9; Calcium 8.3 mg/dL (8.5-10.1)
[2020-03-19] MEDS: ALBUTEROL SULF HFA 90MCG INH 200DOSE IN SCH ×3 (07:00→22:45)
[2020-03-19] MEDS: CARBIDOPA W LEVODOPA 25/100mg TABLET PO SCH ×3 (07:30→20:41)
[2020-03-19] MEDS: FUROSEMIDE 20 MG/2 ML VIAL IV SCH ×2 (07:30→17:45)
[2020-03-19] MEDS: SODIUM CHLOR 0.9% PF (SALINE LOCK) 10ML VIAL/SYR IV SCH ×3 (07:30→20:40)
--- NOTE | 2020-03-19 07:39 | NUR ---
BLOOD BANK BLOOD BANK CALLED STATING THEY HAVE FOLLOWED UP ON ORDER AND PATIENTS BLOOD TYPE IS NOT AVAILABLE, THEY WILL CALL IN EVENING FOR FURTHER UPDATE.
[2020-03-19] MEDS: DexAMETHasone SOD PHOS 4 MG/1ML SDV INJ IV SCH ×2 (08:14→20:39)
[2020-03-19] MEDS: ASCORBIC ACID 1,000 MG TAB PO SCH (08:14)
[2020-03-19] MEDS: ZINC SULFATE 220mg CAP or TAB PO SCH (08:15)
[2020-03-19] MEDS: POTASSIUM CHL 20 Meq TABLET PO SCH (08:15)
[2020-03-19] MEDS: PANTOPRAZOLE 40 MG TAB PO SCH (08:15)
[2020-03-19] MEDS: CHOLECALCIFEROL (VITD3) 1,000UNIT=25mCg TAB PO SCH (08:15)
[2020-03-19] MEDS: CARVEDILOL 3.125 MG TAB PO SCH ×2 (08:16→20:41)
[2020-03-19] MEDS: Ensure Enlive Strawberry 8oz Bottle PO SCH ×3 (08:18→17:46)
--- NOTE | 2020-03-19 09:00 | NUR ---
NUTRITION PATIENT HAS POOR APPETITE. ONLY 25% INTAKE NOTED. SUPPLEMENT PROVIDED.
--- NOTE | 2020-03-19 12:30 | NUR ---
MD ROUNDS DR. ALANIZ AT BEDSIDE. MD UPDATED ON PATIENTS STATUS. NEW ORDERS IN PLACE. MD UPDATED FAMILY VIA PHONE.
--- NOTE | 2020-03-19 13:00 | NUR ---
NUTRITION PATIENT ATE 50% OF LUNCH. PT REMAINS DRINKING SUPPLEMENT DRINK.
[2020-03-19] MEDS ORDERED: AMIODARONE HCL 200 MG TAB PO ONE (13:45)
--- NOTE | 2020-03-19 14:13 | NUR ---
Nutrition Followup Notes Pt wt is 72.4 kg. Pt is positive for COVID. Pt is with a 2gNA diet, appetite is fair aeb ave 50% PO intake over 3 meals. Pt with no distress per RN doc. Will continue to monitor PO status, skin status, pertinent labs and weight trends. Will f/u in 3-5 days. Est Energy needs: 4903-4548 kcals (25-30 kcal/kgBW) d/t pt P/U Est Protein needs: 93-116 gms/day (1.2-1.5 gm/kgBW) d/t pt P/U Will continue to monitor and reassess prn. LABS: BUN 42 H, Gluc 137 H, Ca 8.3 L, Alb 1.9 L GI: Pt had 1 BM on 03/18 per RN doc. BS: 15 mod risk. Refer to wound assessment report for full details. PES: 1) Inadequate vit/protein/energy intake r/t increased nutrient needs aeb compromised skin integrity 2) Altered nutrition related lab values r/t current medical condition aeb elev RFTs, low GFR, mod hypoalbuminemia Comments Will continue to monitor PO status, skin status, pertinent labs and weight trends. Will f/u in 3-5 days. 1) Continue to closely monitor pt PO intake to meet at least 75% of meals 2) Consider adding a daily MVI 3) If albumin continues trending down with improved RFTs, consider Prostat 1 pkt BID 4) Continue current plan of care
--- NOTE | 2020-03-19 14:30 | NUR ---
POSITIONING PATIENT TURNED TO RIGHT SIDE HE STATES HE IS UNABLE TO PRONE. PILLOWS APPLIED FOR COMFORT. POX 93-94%. PT TOLERATED WELL.
--- NOTE | 2020-03-19 15:15 | NUR ---
FAMILY IN TO BRING PATIENT A SHAKE AFTER GIVEN OK BY . Addendum: 03/19/20 at 1536 by Tere Senior RN DELIVERED
--- NOTE | 2020-03-19 15:38 | NUR ---
[facility] PROVIDED PATIENT SKIN CLEANSED. DTI CLEANSED ORDERED. ZGUARD APPLIED. PATIENT ENCOURAGED TO OFF LOAD SACRUM TO PREVENT WORSENING AND ALLOW HEALING. PT VERBALIZED UNDERSTANDING. Addendum: 03/19/20 at 1544 by Tere Senior RN TIME CHANGE TO 0800
[2020-03-19] MEDS: SALINE 0.65 % NASAL SPRAY 45ML BOTTLE EACHNOSTRI SCH ×2 (17:23→20:11)
--- NOTE | 2020-03-19 19:30 | NUR ---
PT AAOX4, MOVES ALL EXTREMITIES, AFEBRILE. AFIB ON THE MONITOR. HR 93. NO C/O PAIN AT THIS TIME. PT ON HF NC POX92%, NO CURRENT DISTRESS, SOB W/EXERTION. POC DISCUSSED, PT STATED UNDERSTANDING. SAFETY PRECAUTIONS IN PLACE. WILL CONTINUE TO MONITOR.
[2020-03-19] MEDS: AMIODARONE HCL 200 MG TAB PO SCH (20:40)
[2020-03-20] VITALS (14 sets, daily range): BP systolic 93–133; BP diastolic 52–85
[2020-03-20] MEDS: ACETAMINOPHEN 500 MG TAB PO PRN ×2 (01:39→14:50)
--- NOTE | 2020-03-20 04:15 | NUR ---
PT RECEIVING CONVALESCENT PLASMA, TOLERATING WELL. NO BLOOD TRANSFUSION RXNS. SAFETY PRECAUTIONS IN PLACE. WILL CONTINUE TO MONITOR.
[2020-03-20 04:48] LABS: Basophils # (auto) 0 10 ^3/uL (0-0.2); Basophils % (auto) 0.2 % (0.0-2.0); Eosinophils # (auto) 0 10 ^3/uL (0-0.8); Hemoglobin 13.2 g/dL (13.5-17.5); Lymphocytes % (auto) 40.7 % (10.0-50.0); Mean Corpuscular Hemoglobin 32.3 pg (28.0-32.0); Mean Corpuscular Hgb Conc. 32.2 g/dL (32.0-36.0); Mean Corpuscular Volume 100.1 fL (80.0-100.0); Monocytes # (auto) 0.4 10 ^3/uL (0-1.3); Monocytes % (auto) 2.6 % (0.0-12.0); Neutrophils # (auto) 8.3 10 ^3/uL (1.6-8.6); Neutrophils % (auto) 56.5 % (37.0-80.0); Nucleated Red Blood Cells % 0.1 %; Platelet Count (auto) 164 10^3/uL (140-450); Red Blood Cells 4.09 10^6/uL (4.5-5.90); Red Cell Distribution Width 13.1 % (11.8-14.3); White Blood Cell 14.6 10^3/uL (4.4-10.8)
[2020-03-20 05:29] LABS: BUN/Creatinine Ratio 33.1; Calcium 8.4 mg/dL (8.5-10.1); Potassium 4.3 mmol/L (3.5-5.1)
[2020-03-20] MEDS: FUROSEMIDE 20 MG/2 ML VIAL IV SCH (05:42)
[2020-03-20] MEDS: SODIUM CHLOR 0.9% PF (SALINE LOCK) 10ML VIAL/SYR IV SCH ×3 (05:43→22:06)
[2020-03-20] MEDS: CARBIDOPA W LEVODOPA 25/100mg TABLET PO SCH ×3 (05:43→21:31)
--- NOTE | 2020-03-20 06:15 | NUR ---
PLASMA TRANSFUSED, PT TOLERATED WELL. NO CURRENT TRANSFUSION RXNS. SAFETY PRECAUTIONS IN PLACE. WILL CONTINUE TO MONITOR.
[2020-03-20] MEDS: ALBUTEROL SULF HFA 90MCG INH 200DOSE IN SCH ×3 (06:25→22:06)
--- NOTE | 2020-03-20 07:30 | NUR ---
ACTIVITY PATIENT ASSISTED OOB TO CHAIR USING MODERATE ASSISTANCE. A.M CARES PROVIDED. COMPLETE LINEN CHANGE DONE. BREAKFAST TRAY PROVIDED. PT TOLERATED ACTIVITY WELL. POX REMAINED ABOVE 89% AND SET BACK TO 92% ONCE RESTING.
[2020-03-20] MEDS: Ensure Enlive Strawberry 8oz Bottle PO SCH ×3 (08:00→18:10)
[2020-03-20] MEDS: ASCORBIC ACID 1,000 MG TAB PO SCH (09:09)
[2020-03-20] MEDS: PANTOPRAZOLE 40 MG TAB PO SCH (09:09)
[2020-03-20] MEDS: POTASSIUM CHL 20 Meq TABLET PO SCH (09:09)
[2020-03-20] MEDS: AMIODARONE HCL 200 MG TAB PO SCH ×2 (09:09→21:31)
[2020-03-20] MEDS: ZINC SULFATE 220mg CAP or TAB PO SCH (09:10)
[2020-03-20] MEDS: CHOLECALCIFEROL (VITD3) 1,000UNIT=25mCg TAB PO SCH (09:20)
[2020-03-20] MEDS: CARVEDILOL 3.125 MG TAB PO SCH ×2 (09:20→21:31)
[2020-03-20] MEDS: DexAMETHasone SOD PHOS 4 MG/1ML SDV INJ IV SCH ×2 (09:21→21:30)
--- NOTE | 2020-03-20 09:30 | NUR ---
POSITION PATIENT ASSISTED BACK TO BED USING MODERATE ASSISTANCE. PT TOLERATED WELL. ENCOURAGED PATIENT TO LAY ON HIS SIDE SINCE UNABLE TO LAY PRONE AT THIS TIME. PATIENT LAYING TO HIS LEFT SIDE AT THIS TIME TO REST.
--- NOTE | 2020-03-20 09:40 | NUR ---
TITRATED HIGH FLOW SETTINGS TO 35LPM, FIO2 40%. HEATER MICHAEL CHANGED WITHOUT INCIDENT. PT TOLERATING CHANGES WELL. RN AT BEDSIDE, MADE AWARE OF CHANGES. NO DISTRESS NOTED. WILL CONTINUE TO MONITOR.
--- NOTE | 2020-03-20 10:15 | NUR ---
POSITION PATIENT TURNED TO LEFT SIDE TO ASSIST WITH OXYGENATION HE IS REFUSING TO PRONE, SHORTLY AFTER POSITION CHANGE PATIENT CALLS STATING HE IS " UNCOMFORTABLE" AND WANTS TO BE BACK ON HIS BACK. INFORMED PATIENT IMPORTANCE OF NOT ONLY TURNING FOR RESPIRATORY BENEFITS BUT ALSO TO PREVENT FURTHER BREAKDOWN TO SACRUM. PATIENT VERBALIZED UNDERSTANDING BUT SHORTLY AFTER CALLS AGAIN TO BE REPOSITIONED BACK TO SUPINE POSITION. PATIENT PLACED BACK SUPINE. WILL CONTINUE TO ENCOURAGE OFF LOADING PRESSURE AND TURNING TO SIDE. HEELS OFFLOADED WITH PILLOWS. PREVENTATIVE DRESSING REMAINS TO SACRUM.
--- NOTE | 2020-03-20 11:00 | NUR ---
DESATURATION PATIENT RESTING IN BED SLEEPING, POX NOTED LOW AT 82%. PATIENT CALLED AND INSTRUCTED TO LAY ON HIS SIDE. POX NOTED TO INCREASE BACK TO 87%. SHORTLY AFTER POX DECREASED BACK TO 94%. Deborah KEITA TO NOTIFY. Addendum: 03/20/20 at 1520 by Tere Senior RN DECREASED BACK TO 84%.
--- NOTE | 2020-03-20 11:30 | NUR ---
MD ROUNDS MD MAKING ROUND AND PATIENT AWAKE. POX BACK TO 88-89%. MD AWARE. NO CHANGES MADE AT THIS TIME. R.T AWARE.
[2020-03-20] MEDS: SALINE 0.65 % NASAL SPRAY 45ML BOTTLE EACHNOSTRI SCH ×3 (12:00→22:06)
--- NOTE | 2020-03-20 18:31 | NUR ---
FIO2 HAS BEEN TITRATED TO 35% AND FLOW HAS BEEN SET TO 30L. SPO2 MAINTAINED AT 93-96%.
--- NOTE | 2020-03-20 21:15 | NUR ---
Pt sat consistently 86%, FiO2 increased by 5%. Will inform RT. Pt stable at this time. Now sats are 88% - 90%. No S/S of distress.
--- NOTE | 2020-03-20 23:39 | NUR ---
Pt stable at this time. Called RN and asked for a sleeping pill. Dr. Zapata was paged and order was given for Restoril. Will continue to monitor.
[2020-03-20] MEDS: TEMAZEPAM 15 MG CAP PO PRN (23:49)
[2020-03-21] VITALS (12 sets, daily range): BP systolic 91–134; BP diastolic 52–85
[2020-03-21] MEDS: SODIUM CHLOR 0.9% PF (SALINE LOCK) 10ML VIAL/SYR IV SCH ×4 (06:23→22:00)
[2020-03-21] MEDS: SALINE 0.65 % NASAL SPRAY 45ML BOTTLE EACHNOSTRI SCH ×4 (06:23→22:00)
[2020-03-21] MEDS: ALBUTEROL SULF HFA 90MCG INH 200DOSE IN SCH ×3 (06:49→22:55)
[2020-03-21] MEDS: CARBIDOPA W LEVODOPA 25/100mg TABLET PO SCH ×4 (07:00→22:00)
--- NOTE | 2020-03-21 07:40 | NUR ---
Pt remains stable. No S/S of distress. Report given to Lisa CROOK, care endorsed.
[2020-03-21] MEDS: Ensure Enlive Strawberry 8oz Bottle PO SCH ×3 (08:00→18:00)
--- NOTE | 2020-03-21 08:00 | NUR ---
OPEN RECEIVED REPORT FROM NIGHT RN. ASSUMED CARE OF [facility] PATIENT, FULL CODE STATUS, + COVID ISOLATION AT THIS TIME. SEE DIGITAL SALES MANAGER FOR FURTHER PATIENT INFORMATION. CONTINUE CARE. CURRENTLY ON HIGH FLOW OXYGEN AT 30LITERS AT 100% FIO2.
[2020-03-21] MEDS: ZINC SULFATE 220mg CAP or TAB PO SCH (09:03)
[2020-03-21] MEDS: DexAMETHasone SOD PHOS 4 MG/1ML SDV INJ IV SCH ×3 (09:03→22:00)
[2020-03-21] MEDS: levoFLOXacin 500 MG TAB PO SCH (09:03)
[2020-03-21] MEDS: FUROSEMIDE 40 MG TAB PO SCH (09:03)
[2020-03-21] MEDS: CARVEDILOL 3.125 MG TAB PO SCH ×2 (09:03→11:00)
[2020-03-21] MEDS: PANTOPRAZOLE 40 MG TAB PO SCH (09:03)
[2020-03-21] MEDS: AMIODARONE HCL 200 MG TAB PO SCH ×3 (09:03→22:00)
[2020-03-21] MEDS: CHOLECALCIFEROL (VITD3) 1,000UNIT=25mCg TAB PO SCH (09:04)
[2020-03-21] MEDS: ASCORBIC ACID 1,000 MG TAB PO SCH (09:04)
--- NOTE | 2020-03-21 11:35 | NUR ---
OXYGENATION PATIENT CONTINUES ON HIGH FLOW AT 30L, NOW AT 60% FIO2 PER R.TSon GRIGGS. CONTINUE CARE.
[2020-03-21] MEDS ORDERED: BUDESONIDE (INHALATION) 0.5 MG/2 ML NEB NEB ONE (12:00)
--- NOTE | 2020-03-21 18:45 | NUR ---
OOB TO CHAIR AT BEDSIDE MODERATE ASSIST WITH HELP FROM MELVIN MURILLO. PATIENT TOLERATED WELL. PATIENT CONTINUES ON PREVIOUS HIGH FLOW OXYGEN SETTINGS. CONTINUE CARE.
[2020-03-21] MEDS: TEMAZEPAM 15 MG CAP PO PRN (21:44)
[2020-03-21] MEDS: ACETAMINOPHEN 500 MG TAB PO PRN (21:45)
--- NOTE | 2020-03-21 21:45 | NUR ---
RN at bedside, initially pt was talking and all the sudden stopped talking, would not make eye contact, 2 quick yawns, heavy and rapid breathing for approx 3 min. Pt cannot squeeze hand with right hand and not moving right foot. No verbal response and only momentary opening of eyes. Will page . Addendum: 03/21/20 at 2251 by Adri Fisher RN Just before non responsiveness, pt did say he was not feeling well. Wanted a sleep aid.
--- NOTE | 2020-03-21 22:20 | NUR ---
paged, waiting for response. New IV started to left wrist. Continually assessing pt for responses.
[2020-03-21] MEDS: BUDESONIDE (INHALATION) 0.5 MG/2 ML NEB NEB SCH (22:55)
--- NOTE | 2020-03-21 23:46 | NUR ---
Unable to do CT at this time due to Covid status and the need of ER to have access to CT. MD informed. No new orders at this time other than to monitor. BP. Pt is moving left hand, and will move right hand by using left hand to move his right hand down but right hand keeps going under his chin. Pt mindlessly fiddling with lines and tubing. Will continue to monitor.
[2020-03-22] VITALS (11 sets, daily range): BP systolic 98–129; BP diastolic 49–72
--- NOTE | 2020-03-22 02:21 | NUR ---
Respiratory note: RETURNED FROM CT AT THIS TIME, LEFT TO CT APPROX 0206 AND PLACED PT ON 15L OXYMIZER WITH 15L NRB. PT SAT MAINTAINED 96%. PLACED PT BACK ONN HFNC AT THIS TIME WITH 50LPM WITH 70% FIO2. NO COMPLICATIONS
--- NOTE | 2020-03-22 02:25 | NUR ---
Pt taken to CT and brought back, no changes at this time. Will continue to monitor.
[2020-03-22] MEDS: SALINE 0.65 % NASAL SPRAY 45ML BOTTLE EACHNOSTRI SCH ×4 (06:00→22:00)
[2020-03-22] MEDS: CARBIDOPA W LEVODOPA 25/100mg TABLET PO SCH ×3 (06:00→22:00)
[2020-03-22] MEDS: SODIUM CHLOR 0.9% PF (SALINE LOCK) 10ML VIAL/SYR IV SCH ×3 (06:08→22:00)
[2020-03-22] MEDS: ALBUTEROL SULF HFA 90MCG INH 200DOSE IN SCH ×3 (06:21→22:00)
[2020-03-22] MEDS: BUDESONIDE (INHALATION) 0.5 MG/2 ML NEB NEB SCH ×2 (06:21→22:00)
--- NOTE | 2020-03-22 06:21 | NUR ---
Pt still remains altered with right sided weakness. Care plan updated for ALOC. Kinney 16 Fr placed for moisture protection and accurate I & O. Will continue to monitor.
--- NOTE | 2020-03-22 06:47 | NUR ---
Pt edson and huan. RN went into assess. Pt slightly more responsive, still not following commands. Kinney patent and draining.
--- NOTE | 2020-03-22 07:43 | NUR ---
Called PBX and ordered consult, they stated they would consult Dr. Park. No other changes for this pt at this time. Report given to Sweta CROOK, care endorsed.
[2020-03-22] MEDS: Ensure Enlive Strawberry 8oz Bottle PO SCH ×3 (08:00→18:00)
--- NOTE | 2020-03-22 08:05 | NUR ---
FAMILY Received phone call from patients , Brandee, correct password provided and updated on patient condition.
[2020-03-22 08:40] LABS: Basophils # (auto) 0.1 10 ^3/uL (0-0.2); Basophils % (auto) 0.3 % (0.0-2.0); Eosinophils # (auto) 0 10 ^3/uL (0-0.8); Hematocrit 41.2 % (41.0-53.0); Hemoglobin 13.6 g/dL (13.5-17.5); Lymphocytes # (auto) 5.7 10 ^3/uL (0.4-5.4); Lymphocytes % (auto) 34.1 % (10.0-50.0); Mean Corpuscular Hemoglobin 32.8 pg (28.0-32.0); Mean Corpuscular Volume 99.3 fL (80.0-100.0); Monocytes # (auto) 0.1 10 ^3/uL (0-1.3); Monocytes % (auto) 0.8 % (0.0-12.0); Neutrophils # (auto) 10.8 10 ^3/uL (1.6-8.6); Neutrophils % (auto) 64.8 % (37.0-80.0); Nucleated Red Blood Cells % 0.1 %; Platelet Count (auto) 112 10^3/uL (140-450); Red Blood Cells 4.15 10^6/uL (4.5-5.90); Red Cell Distribution Width 12.7 % (11.8-14.3); White Blood Cell 16.6 10^3/uL (4.4-10.8)
[2020-03-22 08:53] LABS: INR 1.23 (0.9-1.15)
--- NOTE | 2020-03-22 09:00 | NUR ---
FAMILY Received phone call from patients , Brandee, correct password provided and updated on patient condition.
[2020-03-22 09:12] LABS: Potassium 4.1 mmol/L (3.5-5.1)
[2020-03-22 09:21] LABS: Albumin 2.2 g/dL (3.4-5.0); BUN/Creatinine Ratio 31.1; Bilirubin, Total 1.2 mg/dL (0.2-1.0); Calcium 7.9 mg/dL (8.5-10.1); Total Protein 6.2 g/dL (6.4-8.2)
[2020-03-22] MEDS: CHOLECALCIFEROL (VITD3) 1,000UNIT=25mCg TAB PO SCH (10:00)
[2020-03-22] MEDS: FUROSEMIDE 40 MG TAB PO SCH (10:00)
[2020-03-22] MEDS: ZINC SULFATE 220mg CAP or TAB PO SCH (10:00)
[2020-03-22] MEDS: CARVEDILOL 3.125 MG TAB PO SCH ×2 (10:00→22:00)
[2020-03-22] MEDS: levoFLOXacin 500 MG TAB PO SCH (10:00)
[2020-03-22] MEDS: DexAMETHasone SOD PHOS 4 MG/1ML SDV INJ IV SCH ×2 (10:00→22:00)
[2020-03-22] MEDS: AMIODARONE HCL 200 MG TAB PO SCH ×2 (10:00→22:00)
[2020-03-22] MEDS: ASCORBIC ACID 1,000 MG TAB PO SCH (10:00)
[2020-03-22] MEDS: PANTOPRAZOLE 40 MG TAB PO SCH (10:00)
--- NOTE | 2020-03-22 11:10 | NUR ---
WOUND CARE Wound care nurse Cris CROOK at bedside to assess patients skin. Patient tolerated well.
--- NOTE | 2020-03-22 11:20 | NUR ---
MD Dr. Adams at bedside updated on patient condition with new orders, MD to input into system.
--- NOTE | 2020-03-22 11:20 | NUR ---
WOUND CARE NOTE: IN TO SEE PATIENT AT THIS TIME FOR SKIN INTEGRITY. PATIENT CONTINUES TO BE IN AIRBORNE ISOLATION FOR COVID 19 IN [facility]. PATIENT HAS CURRENT ELISEO SCORE OF 16. PATIENT NOTED TO BE VERY THIN, WEIGHING ONLY 67 KG. SPECIALTY AIR MATTRESS WAS ORDERED FOR PATIENT, BUT CONTINUES TO BE OUTSIDE PATIENT'S ROOM D/T INABILITY TO OPEN DOORS TO PATIENT'S ROOM D/T COVID 19 STATUS. PATIENT TO BE PLACED ON AIR MATTRESS IF HE TRANSFERS TO ANOTHER UNIT. PATIENT TURNED TO LEFT SIDE. HE CONTIUES TO HAVE MULTIPLE SMALL OPEN WOUNDS TO THE SACRUM/BUTTOCKS. LOOKS LIKE THEY STARTED OUT BLISTERS, OR SKIN EROSION FROM [facility]. SKIN TO THE AREA IS PINK, NO ERYTHEMA NOTED. LARGEST OPEN AREA IS TO THE LEFT SACRUM, MEASURING 2.5 X 1 CM. WOUNDS RANGE FROM STAGE 2 TO EARLY STAGE 3, WITH SMALL AMOUNT OF ADIPOSE TISSUE NOTED. APPLIED ZGUARD, OPTIFOAM GENTLE SACRAL DRESSING PER MD ORDER. RIGHT HEEL IS BRIGHT RED, BLANCHABLE. PATIENT WOULD BENEFIT FROM MP FOAM BOOTS TO BILATERAL FEET/HEELS PREVENTATIVE. NO OTHER SKIN INTEGRITY ISSUES SEEN AT THIS TIME. RECOMMEND: MP FOAM BOOTS TO BILATERAL FEET/HEELS, PLACEMENT ON AIR MATTRESS UPON TRANSFER TO ANOTHER UNIT, CONTINUATION WITH ALL OTHER WOUND CARE ORDERS PREVIOUSLY PRESCRIBED BY MD. WOUND CARE TEAM WILL CONTINUE TO MONITOR. Addendum: 03/22/20 at 1418 by Yue Gardner RN Amended: Links added.
--- NOTE | 2020-03-22 12:15 | NUR ---
FAMILY Received phone call from patients , Brandee, correct password provided and updated on patient condition.
--- NOTE | 2020-03-22 13:00 | NUR ---
MD Paged Dr. Adams regarding CT head without contrast that he ordered for today. Awaiting for MD to call back.
--- NOTE | 2020-03-22 13:30 | NUR ---
MD Dr. Adams called back and spoke to this RN and aware that a CT of the head was done this AM at 0200, MD states " Okay to take patient to CT head tomorrow in AM."
--- NOTE | 2020-03-22 15:48 | NUR ---
Nutrition Followup Notes Pt wt is 66.9 kg. Pt is positive for COVID. Pt is with a 2gNA diet, appetite is fair aeb ave 54% PO intake x 3 days per RN note. Pt with no distress per RN doc. Will continue to monitor PO status, skin status, pertinent labs and weight trends. Will f/u in 3-5 days. Est Energy needs: 5256-4306 kcals (25-30 kcal/kgBW) d/t pt P/U Est Protein needs: 93-116 gms/day (1.2-1.5 gm/kgBW) d/t pt P/U Will continue to monitor and reassess prn. LABS: BUN 41H, Creat 1.32H, GLUC 119H, Alb 2.2L, Ca 7.9L GI: Pt had 1 BM on 03/19 per RN doc. BS: 16 mod risk. Refer to wound assessment report for full details. PES: 1) Inadequate vit/protein/energy intake r/t increased nutrient needs aeb compromised skin integrity 2) Altered nutrition related lab values r/t current medical condition aeb elev RFTs, low GFR, mod hypoalbuminemia Comments Will continue to monitor PO status, skin status, pertinent labs and weight trends. Will f/u in 3-5 days. 1) Continue to closely monitor pt PO intake to meet at least 75% of meals 2) Consider adding a daily MVI 3) If albumin continues trending down with improved RFTs, consider Prostat 1 pkt BID 4) Continue current plan of care
--- NOTE | 2020-03-22 17:00 | NUR ---
MD Dr. Park at bedside updated on patient condition with new orders, MD to input into system. Will carry out orders.
--- NOTE | 2020-03-22 17:10 | NUR ---
FAMILY Received phone call from patients , Brandee, correct password provided and updated on patient condition.
[2020-03-22] MEDS ORDERED: SODIUM CHLORIDE 0.9% 1,000 ML IV SCH (18:15)
--- NOTE | 2020-03-22 18:15 | NUR ---
FAMILY Received phone call from patients , Brandee, correct password provided and updated on patient condition.
--- NOTE | 2020-03-22 18:20 | NUR ---
SHEARING MACHINE TENDER Received phone call from silver solution mixer social insurance specialist Mag regarding: higher level of care per Dr. Park. Updated on patient condition. Mag informed this RN to fax Darryn Thomas: face sheet, labs, CT results, order of transfer of higher level of care and H/P to . Then in 20 minutes to call this number and give a clinical report.
[2020-03-22 18:27] LABS: Cholesterol 112 mg/dL (< 200)
[2020-03-22 18:30] LABS: HDL Cholesterol 26 mg/dL (40-59); LDL Cholesterol 82 mg/dL (< 100); Triglycerides 143 mg/dL (< 150)
--- NOTE | 2020-03-22 18:40 | NUR ---
WILBERT KHAN Requested documents faxed to [facility].
--- NOTE | 2020-03-22 19:02 | NUR ---
TRANSFER Spoke with Oscar at [facility] transfer center and said they don't have beds available at this time.
--- NOTE | 2020-03-22 19:05 | NUR ---
DARRYN KHAN Per charge nurse Darryn rBadford called and stated " Only accepting cardiac patient at this time."
[2020-03-22] MEDS: ATORVASTATIN 20 MG TAB PO SCH (22:00)
[2020-03-23] VITALS (8 sets, daily range): BP systolic 95–121; BP diastolic 60–76
--- NOTE | 2020-03-23 02:00 | NUR ---
NGT placed to left nare at 60 cm. Pt tolerated well. Pt responding with head nod and hand emu farmer on left side. Slight movement on right foot and extremely slight movement in emu farmer on right hand. Pt makes eye contact when requested. Non verbal but acknowledges interactions.
[2020-03-23] MEDS: ALBUTEROL SULF HFA 90MCG INH 200DOSE IN SCH ×3 (06:00→22:50)
[2020-03-23] MEDS: CARBIDOPA W LEVODOPA 25/100mg TABLET PO SCH ×3 (06:00→22:34)
[2020-03-23] MEDS: SALINE 0.65 % NASAL SPRAY 45ML BOTTLE EACHNOSTRI SCH ×4 (06:00→22:00)
[2020-03-23] MEDS: SODIUM CHLOR 0.9% PF (SALINE LOCK) 10ML VIAL/SYR IV SCH ×3 (06:13→22:33)
--- NOTE | 2020-03-23 06:40 | NUR ---
HIGH FLOW NC: TITRATED SETTINGS TO 35LPM, FIO2 45%. PT TOLERATING WELL, SPO2 96%
[2020-03-23] MEDS: ASPirin 300 MG RECTAL SUPP PR SCH ×2 (06:49→10:00)
[2020-03-23] MEDS: AMIODARONE HCL 200 MG TAB PO SCH ×2 (06:49→22:34)
[2020-03-23] MEDS: ATORVASTATIN 20 MG TAB PO SCH ×2 (06:51→22:34)
[2020-03-23] MEDS: BUDESONIDE (INHALATION) 0.5 MG/2 ML NEB NEB SCH ×2 (06:57→23:10)
--- NOTE | 2020-03-23 07:30 | NUR ---
Pt remains stable at this time. Unable to contact vocational case manager due to time of night. Reported to AM shift of inability to work on transfer. Report given, care endorsed.
[2020-03-23] MEDS: Ensure Enlive Strawberry 8oz Bottle PO SCH ×3 (08:00→18:00)
--- NOTE | 2020-03-23 08:10 | NUR ---
MD Dr. Park at bedside updated on patient condition with new orders received to discontinue order for CT head/higher level of care witnessed by Marlene radiology assistant nurse. Will continue to monitor patient closely.
--- NOTE | 2020-03-23 09:18 | NUR ---
TOOK PT OFF HIGH FLOW AND PLACED ON OXYMIZER 6LPM. PT TOLERATING WELL, HR 85, RR 20, SPO2 96%. NO S/S OF DISTRESS NOTED. NOTIFIED RN OF CHANGES.
[2020-03-23] MEDS: ZINC SULFATE 220mg CAP or TAB PO SCH (10:00)
[2020-03-23] MEDS: PANTOPRAZOLE 40 MG TAB PO SCH (10:00)
[2020-03-23] MEDS: ASCORBIC ACID 1,000 MG TAB PO SCH (10:00)
[2020-03-23] MEDS: DexAMETHasone SOD PHOS 4 MG/1ML SDV INJ IV SCH ×2 (10:00→22:33)
[2020-03-23] MEDS: levoFLOXacin 500 MG TAB PO SCH (10:00)
[2020-03-23] MEDS: CHOLECALCIFEROL (VITD3) 1,000UNIT=25mCg TAB PO SCH (10:00)
--- NOTE | 2020-03-23 10:58 | NUR ---
1055 03/23/2020 - Faxed the following: Transfer center for [facility] at [phone], [facility] transfer center [phone] and [facility] transfer center at [phone] face sheet, ORDER FOR TRANSFER TO [facility], H/P, meds, labs, consults. Pending acceptance,and bed assignment.
[2020-03-23] MEDS ORDERED: Jevity 1.2 Cal/Fiber 1 Liter GT SCH (11:30)
[2020-03-23] MEDS ORDERED: ASPirin 81 mg TAB PO ONE (11:30)
--- NOTE | 2020-03-23 11:30 | NUR ---
ULTRASOUND property technician at bedside to obtain study of carotids.
--- NOTE | 2020-03-23 11:30 | NUR ---
MD Dr. Fraga at bedside updated on patient condition with new orders, MD to input into system. Will carry out orders.
--- NOTE | 2020-03-23 14:35 | NUR ---
RESPIRATORY RT Adri at bedside and decreased oximizer to 4 liters.
--- NOTE | 2020-03-23 14:35 | NUR ---
Pt remains off high flow, tolerating well. Titrated oxymizer to 4lpm, SPO2 94%. No s/s of distress.
--- NOTE | 2020-03-23 15:45 | NUR ---
NUTRITION Left NG tube checked and verified via air bolus and started tube feedings at 20ml/hr, will continue to monitor residuals.
[2020-03-24] VITALS (7 sets, daily range): BP systolic 104–112; BP diastolic 52–80
[2020-03-24 03:25] LABS: Basophils # (auto) 0 10 ^3/uL (0-0.2); Basophils % (auto) 0.3 % (0.0-2.0); Eosinophils # (auto) 0 10 ^3/uL (0-0.8); Hematocrit 41.4 % (41.0-53.0); Hemoglobin 13.6 g/dL (13.5-17.5); Lymphocytes # (auto) 4.8 10 ^3/uL (0.4-5.4); Lymphocytes % (auto) 33.1 % (10.0-50.0); Mean Corpuscular Hemoglobin 33.1 pg (28.0-32.0); Mean Corpuscular Hgb Conc. 32.9 g/dL (32.0-36.0); Mean Corpuscular Volume 100.7 fL (80.0-100.0); Monocytes # (auto) 0.1 10 ^3/uL (0-1.3); Monocytes % (auto) 0.9 % (0.0-12.0); Neutrophils # (auto) 9.5 10 ^3/uL (1.6-8.6); Neutrophils % (auto) 65.7 % (37.0-80.0); Nucleated Red Blood Cells % 0.1 %; Platelet Count (auto) 112 10^3/uL (140-450); Red Blood Cells 4.11 10^6/uL (4.5-5.90); Red Cell Distribution Width 13.2 % (11.8-14.3); White Blood Cell 14.4 10^3/uL (4.4-10.8)
[2020-03-24 03:51] LABS: BUN/Creatinine Ratio 35.7; Calcium 7.8 mg/dL (8.5-10.1); Potassium 4.4 mmol/L (3.5-5.1)
[2020-03-24] MEDS: SALINE 0.65 % NASAL SPRAY 45ML BOTTLE EACHNOSTRI SCH ×4 (06:00→22:20)
[2020-03-24] MEDS: SODIUM CHLOR 0.9% PF (SALINE LOCK) 10ML VIAL/SYR IV SCH ×3 (06:28→21:39)
[2020-03-24] MEDS: CARBIDOPA W LEVODOPA 25/100mg TABLET PO SCH ×3 (06:28→21:40)
[2020-03-24] MEDS: BUDESONIDE (INHALATION) 0.5 MG/2 ML NEB NEB SCH ×2 (06:42→22:00)
[2020-03-24] MEDS: ALBUTEROL SULF HFA 90MCG INH 200DOSE IN SCH ×3 (06:50→22:00)
--- NOTE | 2020-03-24 06:59 | NUR ---
Pt remained stable this shift. More alert when spoken to and tracks with eyes for short periods. Can nod or shake head to express pain or needs. No S/S of distress this shift. Feeding of Jevity turned up to 35 ml/hr, pt tolerating well. O2 sats stable and maintained between 96-100 throughout shift on 4LPM oxymizer. Report given, care endorsed.
--- NOTE | 2020-03-24 07:30 | NUR ---
FAMILY Received phone call from patients daughter, unable to provided password, informed daughter to call step mom for password then to call to received information.
[2020-03-24] MEDS: Ensure Enlive Strawberry 8oz Bottle PO SCH ×3 (08:00→20:00)
--- NOTE | 2020-03-24 08:30 | NUR ---
RADIOLOGY Received phone call from radiology regarding chest x-ray to advance NG tube by 5 cm.
--- NOTE | 2020-03-24 08:30 | NUR ---
PHONE CALL Received phone call from grand-daughter wanted to speak to patient informed her that patient is sleeping at this time.
[2020-03-24] MEDS: ASPirin 300 MG RECTAL SUPP PR SCH (09:28)
[2020-03-24] MEDS: DexAMETHasone SOD PHOS 4 MG/1ML SDV INJ IV SCH ×2 (09:44→21:39)
[2020-03-24] MEDS: ZINC SULFATE 220mg CAP or TAB PO SCH (09:44)
[2020-03-24] MEDS: levoFLOXacin 500 MG TAB PO SCH (09:44)
[2020-03-24] MEDS: AMIODARONE HCL 200 MG TAB PO SCH ×2 (09:44→21:39)
[2020-03-24] MEDS: PANTOPRAZOLE 40 MG TAB PO SCH (09:45)
[2020-03-24] MEDS: CHOLECALCIFEROL (VITD3) 1,000UNIT=25mCg TAB PO SCH (09:45)
[2020-03-24] MEDS: ASCORBIC ACID 1,000 MG TAB PO SCH (09:45)
[2020-03-24] MEDS ORDERED: ASPirin 81 mg TAB PO SCH (10:00)
--- NOTE | 2020-03-24 12:15 | NUR ---
NUTRITION NG tube checked and verified via air bolus and zero residuals aspirated. Tube feedings to continue at current goal rate of 40ml/hr. Will continue to monitor.
--- NOTE | 2020-03-24 13:56 | NUR ---
Nutrition Followup Notes Pt wt is 66.9 kg. Pt is positive for COVID. pt is currently NPO on EN support with Jevity 1.2 @ 40 ml/hr providing 1152 kcals and 52 gm proteins. pt with inadequate EN support was it meets 49-59% kcals and 44-55% proteins Est Energy needs: 9090-7674 kcals (25-30 kcal/kgBW) d/t pt P/U, Est Protein needs: 93-116 gms/day (1.2-1.5 gm/kgBW) d/t pt P/U Will continue to monitor and reassess prn. LABS: BUN 46H, GLUC 114 H, Alb 2.2L, Ca 7.8L GI: Pt had 1 BM on 03/19 per RN doc. BS: 11 high risk pres ulcer. Refer to wound assessment report for full details. PES: 1) Inadequate vit/protein/energy intake r/t increased nutrient needs aeb compromised skin integrity 2) Altered nutrition related lab values r/t current medical condition aeb elev RFTs, low GFR, mod hypoalbuminemia Comments Will continue to monitor NPO status EN tolerance, skin status, pertinent labs and weight trends. Will f/u in 2-3 days. 1)Adavce EN support with Osmolite @ 70 ml/hr per MD approval (Instead of jevity as jevity is on shortage) 2) Consider adding a daily MVI 3) If albumin continues trending down with improved RFTs, consider Prostat 1 pkt BID 4) resume diet as medically feaisble 5) Continue current plan of care
--- NOTE | 2020-03-24 17:45 | NUR ---
FAMILY Received phone call from patients , correct password provided and updated on patient condition.
--- NOTE | 2020-03-24 19:30 | NUR ---
OPENING SHIFT RECEIVED REPORT FROM DAY SHIFT RN. ASSUMED CARE OF PATIENT. PATIENT IN BED RESTING WITH NO SIGNS OR SYMPTOMS OF SOB, PAIN OR DISTRESS. CURRENTLY ON 4L 02 OXYMIZER, 02 SAT - 98%. PATIENT APHASIC BUT ABLE TO FOLLOW BASIC COMMANDS. LEFT WRIST IV - CLEAN/DRY/INTACT. ZARAGOZA HUNG TO GRAVITY. REPOSITIONED FOR COMFORT. BED IN LOWEST POSITION, SIDE RAILS UP X2, CALL LIGHT WITHIN REACH. WILL CONTINUE TO MONITOR.
[2020-03-24] MEDS: ATORVASTATIN 20 MG TAB PO SCH (21:39)
[2020-03-25] VITALS: BP 117/69
[2020-03-25 04:00] VITALS: BP 124/69
--- NOTE | 2020-03-25 04:45 | NUR ---
MORNING CARE PERFORMED MORNING CARE WITH WARM WASH CLOTHS. PARTIAL LINEN CHANGE AND GOWN CHANGED. REPOSITIONED FOR COMFORT. SKIN REASSESSED AT THIS TIME. OPTIFOAM PLACED ON SACRUM AND RIGHT LOWER THIGH. ZARAGOZA CARE PERFORMED. BED IN LOWEST POSITION, SIDE RAILS UP X2. CALL LIGHT WITHIN REACH. WILL CONTINUE TO MONITOR.
[2020-03-25] MEDS: CARBIDOPA W LEVODOPA 25/100mg TABLET PO SCH ×3 (05:39→21:25)
[2020-03-25] MEDS: SODIUM CHLOR 0.9% PF (SALINE LOCK) 10ML VIAL/SYR IV SCH ×3 (05:39→21:24)
[2020-03-25] MEDS: SALINE 0.65 % NASAL SPRAY 45ML BOTTLE EACHNOSTRI SCH ×4 (06:00→22:00)
[2020-03-25] MEDS: BUDESONIDE (INHALATION) 0.5 MG/2 ML NEB NEB SCH ×2 (06:11→06:12)
[2020-03-25] MEDS: ALBUTEROL SULF HFA 90MCG INH 200DOSE IN SCH ×3 (06:11→23:42)
--- NOTE | 2020-03-25 07:07 | NUR ---
END OF SHIFT REPORT GIVEN TO DAY SHIFT RN. CARE ENDORSED.
--- NOTE | 2020-03-25 07:45 | NUR ---
OPENING SHIFT NOTE Received report from NOC RNSarath. Assumed care of patient. Received patient lying in bed, connected to bedside monitor with alarms in place. Patient with no s/s of distress noted. Patient currently on Novel Respiratory Isolation for COVID. Patient opens eyes to name, tracks staff with movement, but remains aphasic. Patient's right side with severe weakness, moves left side on own. Patient with NGT to left nare at 60cm running Jevity tube feeds at 40ml/hr with no residuals noted. Placement verified by auscultation. Patient with PIV to left FA #20 and is patent. Patient with norton catheter draining to graivty yellow urine. Bed in lowest position, rails x4 up for safety and call light within reach. Updated on plan of care. Will continue to monitor q1hr/PRN.
[2020-03-25 08:00] VITALS: BP 118/71
[2020-03-25] MEDS: Ensure Enlive Strawberry 8oz Bottle PO SCH ×3 (08:00→18:00)
[2020-03-25] MEDS: DexAMETHasone SOD PHOS 4 MG/1ML SDV INJ IV SCH ×2 (09:58→21:24)
[2020-03-25] MEDS: PANTOPRAZOLE 40 MG TAB PO SCH (09:59)
[2020-03-25] MEDS: ZINC SULFATE 220mg CAP or TAB PO SCH (09:59)
[2020-03-25] MEDS: levoFLOXacin 500 MG TAB PO SCH (09:59)
[2020-03-25] MEDS: AMIODARONE HCL 200 MG TAB PO SCH ×2 (09:59→21:24)
[2020-03-25] MEDS: ASPirin 81 mg TAB PO SCH (09:59)
[2020-03-25] MEDS: CHOLECALCIFEROL (VITD3) 1,000UNIT=25mCg TAB PO SCH (09:59)
[2020-03-25] MEDS: ASCORBIC ACID 1,000 MG TAB PO SCH (09:59)
--- NOTE | 2020-03-25 10:30 | NUR ---
MD Dr Fraga to see patient. Orders received to downgrade patient to tele.
--- NOTE | 2020-03-25 11:55 | NUR ---
Report given to AMBREEN Sanderson. Patient to be transferred to [facility] on tele box 15 once transferred over to specialty bed.
--- NOTE | 2020-03-25 13:00 | NUR ---
Patient transferred to specialty mattress then transferred to room 247A on tele box 15.
[2020-03-25 17:08] VITALS: BP 129/78
--- NOTE | 2020-03-25 19:15 | NUR ---
OPENING SHIFT NOTE Assumed care of patient, patient lying in bed with no s/s or distress or SOB noted, connected to tele box #15 and current reading is 99 bpm. Instructed on POC and oriented to surroundings, patient unable to verbalize understanding. Patient opens eyes to name but does not track staff with movement, pt remains aphasic. Patient currently on Novel Respiratory Isolation for COVID and assessment performed using provided PPE. Bed in lowest locked position with two side rails raised, call callahan within reach, and bed alarm activated for safety. Patient's right side with severe weakness, moves left side on own. Patient with NGT to left nare at 60cm running Jevity tube feeds at 50ml/hr with no residuals noted. Kinney catheter hung below the bladder and draining to gravity. Will continue to monitor q1hr/PRN.
[2020-03-25 20:00] VITALS: BP 129/77
[2020-03-25] MEDS: ATORVASTATIN 20 MG TAB PO SCH (21:25)
[2020-03-25 22:00] VITALS: BP 129/77
[2020-03-25] MEDS: BUDESONIDE (INHALATION) 180 MCG IH IN SCH (22:00)
[2020-03-26 05:00] VITALS: BP 121/69
[2020-03-26] MEDS: SALINE 0.65 % NASAL SPRAY 45ML BOTTLE EACHNOSTRI SCH ×4 (06:00→21:56)
[2020-03-26] MEDS: CARBIDOPA W LEVODOPA 25/100mg TABLET PO SCH ×3 (06:28→21:10)
[2020-03-26] MEDS: SODIUM CHLOR 0.9% PF (SALINE LOCK) 10ML VIAL/SYR IV SCH ×3 (06:28→21:08)
[2020-03-26 06:30] LABS: BUN/Creatinine Ratio 38.1; Potassium 4.6 mmol/L (3.5-5.1)
[2020-03-26 06:57] LABS: Basophils # (auto) 0 10 ^3/uL (0-0.2); Basophils % (auto) 0.1 % (0.0-2.0); Eosinophils # (auto) 0 10 ^3/uL (0-0.8); Hematocrit 41.8 % (41.0-53.0); Hemoglobin 13.6 g/dL (13.5-17.5); Lymphocytes # (auto) 6.3 10 ^3/uL (0.4-5.4); Lymphocytes % (auto) 34.4 % (10.0-50.0); Mean Corpuscular Hemoglobin 32.7 pg (28.0-32.0); Mean Corpuscular Hgb Conc. 32.5 g/dL (32.0-36.0); Mean Corpuscular Volume 100.7 fL (80.0-100.0); Monocytes # (auto) 0.2 10 ^3/uL (0-1.3); Monocytes % (auto) 1.1 % (0.0-12.0); Neutrophils # (auto) 11.9 10 ^3/uL (1.6-8.6); Neutrophils % (auto) 64.4 % (37.0-80.0); Nucleated Red Blood Cells % 0.1 %; Platelet Count (auto) 120 10^3/uL (140-450); Red Blood Cells 4.15 10^6/uL (4.5-5.90); White Blood Cell 18.4 10^3/uL (4.4-10.8)
--- NOTE | 2020-03-26 07:00 | NUR ---
Opening Shift Note Assumed care of patient, awake and alert. No S/S of distress/SOB or pain, patient running Jevity in NG tube HOB at 30 degrees. Instructed on POC and to call for assist PRN, will continue to monitor for changes Q1hr and PRN.
[2020-03-26] MEDS: ALBUTEROL SULF HFA 90MCG INH 200DOSE IN SCH ×3 (07:50→21:10)
[2020-03-26] MEDS: BUDESONIDE (INHALATION) 180 MCG IH IN SCH ×2 (07:50→21:10)
[2020-03-26] MEDS: Ensure Enlive Strawberry 8oz Bottle PO SCH ×3 (07:58→17:37)
[2020-03-26 08:00] VITALS: BP 127/73
[2020-03-26] MEDS: PANTOPRAZOLE 40 MG TAB PO SCH (10:00)
[2020-03-26] MEDS: levoFLOXacin 500 MG TAB PO SCH (10:00)
[2020-03-26 12:00] VITALS: BP 111/75
[2020-03-26] MEDS: AMIODARONE HCL 200 MG TAB PO SCH ×2 (12:08→21:09)
[2020-03-26] MEDS: ZINC SULFATE 220mg CAP or TAB PO SCH (12:08)
[2020-03-26] MEDS: ASPirin 81 mg TAB PO SCH (12:08)
[2020-03-26] MEDS: CHOLECALCIFEROL (VITD3) 1,000UNIT=25mCg TAB PO SCH (12:10)
[2020-03-26] MEDS: ASCORBIC ACID 1,000 MG TAB PO SCH (12:10)
[2020-03-26] MEDS: Jevity 1.2 Cal/Fiber 1 Liter GT SCH (12:13)
[2020-03-26] MEDS ORDERED: cefTRIAXone 1GM/50ML D5W 50 ML IV ONE (12:15)
--- NOTE | 2020-03-26 14:36 | NUR ---
Nutrition Followup Notes Pt wt is 64.5 kg. Pt is positive for COVID. pt is currently NPO on EN support with Jevity 1.2 @ 40 ml/hr providing 1152 kcals and 52 gm proteins. pt with inadequate EN support was it meets 49-59% kcals and 44-55% proteins Est Energy needs: 7970-8460 kcals (25-30 kcal/kgBW) d/t pt P/U, Est Protein needs: 93-116 gms/day (1.2-1.5 gm/kgBW) d/t pt P/U Will continue to monitor and reassess prn. LABS: CA 8.0 L, ALB 2.2 L, GLU 184 H, BUN 51 H, CREAT 1.34 H GI: Pt had 1 BM on 03/19 per RN doc. Noted pt on Vit C zn BS: 11 high risk pres ulcer. Refer to wound assessment report for full details. PES: 1) Inadequate vit/protein/energy intake r/t increased nutrient needs aeb compromised skin integrity 2) Altered nutrition related lab values r/t current medical condition aeb elev RFTs, low GFR, mod hypoalbuminemia Comments Will continue to monitor NPO status EN tolerance, skin status, pertinent labs and weight trends. Will f/u in 2-3 days. 1)Adavce EN support with Osmolite @ 70 ml/hr per MD approval (Instead of Osmolite as jevity is on shortage) 2) Consider adding a daily MVI 3) If albumin continues trending down with improved RFTs, consider Prostat 1 pkt BID 4) resume diet as medically feaisble 5) Continue current plan of care
[2020-03-26] MEDS: DexAMETHasone SOD PHOS 4 MG/1ML SDV INJ IV SCH ×2 (14:47→21:08)
[2020-03-26 17:00] VITALS: BP 118/74
[2020-03-26] MEDS: FREE WATER GT SCH (17:37)
--- NOTE | 2020-03-26 19:20 | NUR ---
OPENING SHIFT NOTE Assumed care of patient. Patient lying in bed with no s/s of respiratory distress. Awake and oriented X 2. Patient opens eyes to name, answers questions using head movement, remains aphasic. Bed in lowest locked position with two side rails raised, call callahan within reach, and bed alarm activated for safety. Kinney is patent. Patient with NGT to left nostril at 60cm running Jevity tube feeds at 50ml/hr with no residuals. Instructed on POC and oriented to surroundings. Will continue to monitor Q1H or/and PRN.
[2020-03-26 20:00] VITALS: BP 106/65
[2020-03-26] MEDS: ATORVASTATIN 20 MG TAB PO SCH (21:10)
--- NOTE | 2020-03-26 23:45 | NUR ---
NG tube Patient pulled out his NG tube. Spoke to the patient, explained that he needs the NG tube in and we have to insert a new one. Patient shown understanding but demonstrated refusal using gestures and his head. Hospitalist paged.
[2020-03-27] VITALS (7 sets, daily range): BP systolic 107–125; BP diastolic 71–84
--- NOTE | 2020-03-27 00:40 | NUR ---
Spoke to hospitalist regarding NG tube. Spoke to hospitalist regarding patient pulling NG tube out and refusing insertion another one. Got order to leave it like this. Patient has order for GI consult regarding PEG tube placement.
--- NOTE | 2020-03-27 03:20 | NUR ---
NG tube placement Encouraged patient to insert another NG tube. Patient continues refusing the procedure. Educated patient on importance NG tube placement in his medical situation. Patient awake and alert. Will continue to monitor and educate as needed.
[2020-03-27] MEDS: SALINE 0.65 % NASAL SPRAY 45ML BOTTLE EACHNOSTRI SCH ×4 (05:53→22:18)
[2020-03-27] MEDS: SODIUM CHLOR 0.9% PF (SALINE LOCK) 10ML VIAL/SYR IV SCH ×3 (05:54→22:19)
[2020-03-27] MEDS: ALBUTEROL SULF HFA 90MCG INH 200DOSE IN SCH ×3 (05:54→22:19)
[2020-03-27] MEDS: FREE WATER GT SCH ×4 (05:55→18:09)
[2020-03-27] MEDS: CARBIDOPA W LEVODOPA 25/100mg TABLET PO SCH ×4 (05:56→23:00)
--- NOTE | 2020-03-27 07:00 | NUR ---
Opening Shift Note Assumed care of patient, awake and alert. No S/S of distress/SOB or pain. Instructed on POC and to call for assist PRN, will continue to monitor for changes Q1hr and PRN.
--- NOTE | 2020-03-27 07:15 | NUR ---
ENDORSE CARE TO AM SHIFT RN. PATIENT IS SLEEPING, NO S/S OF RESPIRATORY DISTRESS NOTED.
[2020-03-27] MEDS: BUDESONIDE (INHALATION) 180 MCG IH IN SCH ×2 (07:20→22:18)
[2020-03-27 07:42] LABS: Basophils # (auto) 0 10 ^3/uL (0-0.2); Basophils % (auto) 0.1 % (0.0-2.0); Eosinophils # (auto) 0 10 ^3/uL (0-0.8); Hematocrit 41.5 % (41.0-53.0); Hemoglobin 13.6 g/dL (13.5-17.5); Lymphocytes # (auto) 5.5 10 ^3/uL (0.4-5.4); Lymphocytes % (auto) 30.1 % (10.0-50.0); Mean Corpuscular Hemoglobin 32.8 pg (28.0-32.0); Mean Corpuscular Hgb Conc. 32.8 g/dL (32.0-36.0); Monocytes # (auto) 0.3 10 ^3/uL (0-1.3); Monocytes % (auto) 1.6 % (0.0-12.0); Neutrophils # (auto) 12.5 10 ^3/uL (1.6-8.6); Neutrophils % (auto) 68.2 % (37.0-80.0); Nucleated Red Blood Cells % 0.3 %; Platelet Count (auto) 108 10^3/uL (140-450); Red Blood Cells 4.15 10^6/uL (4.5-5.90); Red Cell Distribution Width 13.2 % (11.8-14.3); White Blood Cell 18.4 10^3/uL (4.4-10.8)
[2020-03-27] MEDS: cefTRIAXone 1GM/50ML D5W 50 ML IV SCH (07:54)
[2020-03-27 07:56] LABS: INR 1.19 (0.9-1.15)
[2020-03-27] MEDS: Ensure Enlive Strawberry 8oz Bottle PO SCH (08:00)
[2020-03-27 08:05] LABS: BUN/Creatinine Ratio 44.4; Calcium 8.4 mg/dL (8.5-10.1); Potassium 4.6 mmol/L (3.5-5.1)
[2020-03-27] MEDS: ASCORBIC ACID 1,000 MG TAB PO SCH (10:00)
[2020-03-27] MEDS: CHOLECALCIFEROL (VITD3) 1,000UNIT=25mCg TAB PO SCH (10:00)
[2020-03-27] MEDS: ASPirin 81 mg TAB PO SCH (10:00)
[2020-03-27] MEDS: ZINC SULFATE 220mg CAP or TAB PO SCH (10:00)
--- NOTE | 2020-03-27 10:54 | NUR ---
NG TUBE PLACED IN LEFT NARE AT 63 CM. ORDERED CHEST X-RAY TO ENSURE PROPER PLACEMENT.
--- NOTE | 2020-03-27 12:15 | NUR ---
NG TUBE AFTER PROPER PLACEMENT ACKNOWLEDGED BY X-RAY. I AUSCULTATED FOR AIR AND PLACEMENT CONFIRMED RESTARTED NEW JEVITY BOTTLE AT 50 ML
[2020-03-27] MEDS: FAMOTIDINE 20 MG TAB PO SCH (12:25)
[2020-03-27] MEDS: AMIODARONE HCL 200 MG TAB PO SCH ×2 (12:25→22:19)
[2020-03-27] MEDS: Jevity 1.2 Cal/Fiber 1 Liter GT SCH (12:26)
--- NOTE | 2020-03-27 19:17 | NUR ---
OPENING SHIFT NOTE Assumed care of patient. Patient resting in bed with no s/s of respiratory distress. Awake and oriented X 3. Patient opens eyes to name. Aphasic, answers questions using gestures. Bed in lowest locked position with two side rails raised, call light within reach, and bed alarm activated for safety. Kinney is patent. Patient with NGT to left nostril at 63 cm running Jevity at 50 ml/hr with no residuals. Instructed on POC and oriented to surroundings. Will continue to monitor Q1H or/and PRN.
[2020-03-27] MEDS: ATORVASTATIN 20 MG TAB PO SCH (22:19)
[2020-03-28] MEDS: FREE WATER GT SCH ×6 (00:53→21:29)
--- NOTE | 2020-03-28 01:20 | NUR ---
Residual Checked residual is 110 ml. Stopped the feeding pump. Will recheck in 2 hr. Patient is resting in bed. No s/s of distress, nausea, vomiting, aspiration. Will continue to monitor.
--- NOTE | 2020-03-28 03:12 | NUR ---
Tube feeding Checked residual is 15 ml. Resumed feeding. Patient is asleep.
[2020-03-28 05:09] LABS: Basophils # (auto) 0 10 ^3/uL (0-0.2); Basophils % (auto) 0.1 % (0.0-2.0); Eosinophils # (auto) 0 10 ^3/uL (0-0.8); Hematocrit 38.4 % (41.0-53.0); Hemoglobin 12.6 g/dL (13.5-17.5); Lymphocytes % (auto) 25.7 % (10.0-50.0); Mean Corpuscular Hemoglobin 32.7 pg (28.0-32.0); Mean Corpuscular Hgb Conc. 32.8 g/dL (32.0-36.0); Mean Corpuscular Volume 99.7 fL (80.0-100.0); Monocytes # (auto) 0.2 10 ^3/uL (0-1.3); Monocytes % (auto) 1.1 % (0.0-12.0); Neutrophils # (auto) 14.3 10 ^3/uL (1.6-8.6); Neutrophils % (auto) 73.1 % (37.0-80.0); Nucleated Red Blood Cells % 0.1 %; Platelet Count (auto) 96 10^3/uL (140-450); Red Blood Cells 3.85 10^6/uL (4.5-5.90); Red Cell Distribution Width 12.9 % (11.8-14.3); White Blood Cell 19.6 10^3/uL (4.4-10.8)
[2020-03-28 05:28] LABS: Calcium 7.9 mg/dL (8.5-10.1); Potassium 4.3 mmol/L (3.5-5.1)
[2020-03-28 05:31] LABS: BUN/Creatinine Ratio 47.7
[2020-03-28 06:00] VITALS: BP 118/74
[2020-03-28] MEDS: SALINE 0.65 % NASAL SPRAY 45ML BOTTLE EACHNOSTRI SCH ×4 (06:45→21:29)
[2020-03-28] MEDS: ALBUTEROL SULF HFA 90MCG INH 200DOSE IN SCH ×3 (06:45→23:13)
[2020-03-28] MEDS: SODIUM CHLOR 0.9% PF (SALINE LOCK) 10ML VIAL/SYR IV SCH ×3 (06:45→21:30)
--- NOTE | 2020-03-28 07:30 | NUR ---
OPENING NOTE ASSUMED CARE OF PT. PT ALERT AND AWAKE. NO SOB/DISTRESS NOTED. BED SET TO LOWEST POSITION/LOCKED, BEDSIDE RAILS UP X2, CALL LIGHT WITHIN REACH. WILL CONTINUE TO MONITOR Q 1HR AND PRN.
[2020-03-28 08:00] VITALS: BP 106/68
--- NOTE | 2020-03-28 08:20 | NUR ---
RESIDUAL CHECKED RESIDUAL IS 50ML. WILL CONTINUE TO MONITOR.
[2020-03-28] MEDS: BUDESONIDE (INHALATION) 180 MCG IH IN SCH ×2 (09:23→23:13)
[2020-03-28] MEDS ORDERED: DexAMETHasone SOD PHOS 4 MG/1ML SDV INJ IV SCH (10:00)
[2020-03-28] MEDS ORDERED: CLINDAMYCIN 600MG IV 50 ML IV ONE (11:45)
[2020-03-28] MEDS: ASPirin 81 mg TAB PO SCH (11:59)
[2020-03-28] MEDS: cefTRIAXone 1GM/50ML D5W 50 ML IV SCH (11:59)
[2020-03-28] MEDS: AMIODARONE HCL 200 MG TAB PO SCH ×2 (11:59→21:30)
[2020-03-28] MEDS: ZINC SULFATE 220mg CAP or TAB PO SCH (11:59)
[2020-03-28] MEDS: FAMOTIDINE 20 MG TAB PO SCH (12:00)
[2020-03-28] MEDS: ASCORBIC ACID 1,000 MG TAB PO SCH (12:00)
[2020-03-28] MEDS: CARBIDOPA W LEVODOPA 25/100mg TABLET PO SCH ×2 (12:00→21:29)
[2020-03-28] MEDS: CHOLECALCIFEROL (VITD3) 1,000UNIT=25mCg TAB PO SCH (12:00)
[2020-03-28 13:00] VITALS: BP 114/62
[2020-03-28] MEDS: CLINDAMYCIN 600MG IV 50 ML IV SCH ×2 (15:33→21:30)
[2020-03-28 17:00] VITALS: BP 105/61
--- NOTE | 2020-03-28 19:30 | NUR ---
Opening Shift Note Assumed care of patient, awake and alert. No S/S of distress/SOB or pain. Insructed on POC and to callfor assist PRN, will continue to monitor for changes Q1hr and PRN. Fall and safety precautions in place. Call light within reach. NGT in place in left nare at 65cm, running Jevity at 50ml/hr. Residual checked, 20ml. Will continue to monitor
[2020-03-28 20:00] VITALS: BP 107/66
[2020-03-28] MEDS: APIXABAN 2.5 MG TAB PO SCH (21:29)
[2020-03-28] MEDS: ATORVASTATIN 20 MG TAB PO SCH (21:30)
[2020-03-29] MEDS: FREE WATER GT SCH ×6 (01:50→23:10)
--- NOTE | 2020-03-29 02:00 | NUR ---
HOSPITALIST Hospitalist on-call paged regarding pain medication. Awaiting call back
--- NOTE | 2020-03-29 02:25 | NUR ---
HOSPITALIST Received call back from hospitalist on-call, Dr. Zapata. New orders received, read back and verified. Will input and carry out
[2020-03-29] MEDS ORDERED: HYDROcodone-ACET 5/325MG TAB PO PRN (02:30)
[2020-03-29 05:00] VITALS: BP 106/62
[2020-03-29] MEDS: CLINDAMYCIN 600MG IV 50 ML IV SCH ×3 (05:22→23:11)
[2020-03-29] MEDS: SODIUM CHLOR 0.9% PF (SALINE LOCK) 10ML VIAL/SYR IV SCH ×3 (05:22→23:11)
[2020-03-29] MEDS: SALINE 0.65 % NASAL SPRAY 45ML BOTTLE EACHNOSTRI SCH ×4 (05:22→23:11)
[2020-03-29 05:40] LABS: Basophils # (auto) 0 10 ^3/uL (0-0.2); Basophils % (auto) 0.2 % (0.0-2.0); Eosinophils # (auto) 0.1 10 ^3/uL (0-0.8); Eosinophils % (auto) 0.7 % (0.0-7.0); Hematocrit 33.4 % (41.0-53.0); Hemoglobin 11.2 g/dL (13.5-17.5); Mean Corpuscular Hemoglobin 33.3 pg (28.0-32.0); Mean Corpuscular Hgb Conc. 33.6 g/dL (32.0-36.0); Mean Corpuscular Volume 99.1 fL (80.0-100.0); Monocytes # (auto) 0.2 10 ^3/uL (0-1.3); Neutrophils # (auto) 11.8 10 ^3/uL (1.6-8.6); Neutrophils % (auto) 69.1 % (37.0-80.0); Nucleated Red Blood Cells % 0.1 %; Platelet Count (auto) 95 10^3/uL (140-450); Red Blood Cells 3.37 10^6/uL (4.5-5.90); Red Cell Distribution Width 12.7 % (11.8-14.3); White Blood Cell 17.1 10^3/uL (4.4-10.8)
[2020-03-29 05:55] LABS: Potassium 4.3 mmol/L (3.5-5.1)
[2020-03-29 06:00] LABS: BUN/Creatinine Ratio 49.3; Calcium 7.5 mg/dL (8.5-10.1)
[2020-03-29] MEDS: ALBUTEROL SULF HFA 90MCG INH 200DOSE IN SCH ×3 (06:50→23:46)
[2020-03-29] MEDS: BUDESONIDE (INHALATION) 180 MCG IH IN SCH ×2 (06:50→22:00)
[2020-03-29 08:00] VITALS: BP 108/64
[2020-03-29] MEDS ORDERED: DexAMETHasone SOD PHOS 10MG/1ML VIAL INJ IV SCH (10:00)
--- NOTE | 2020-03-29 10:25 | NUR ---
WOUND CARE NOTE: Wound care in to see patient for reevaluation of wounds. Patient continue resting on air mattress in Rm. 247A. Patient is awake, appears to be in no pain using Keller Cobb Faces pain Scale. He's max assist in turning and repositioning and his Shan score is 12. Skin/wound assessment done with the assistance of patient's nurse, AMBREEN Carvajal. Patient's L distal sacrum (1x1cm) continue to display open full thickness wound with no measurable depth (Stage 3 pressure injury). Tiny wound to his R medial sacrum now measuring 0.8x1cm and 0.5x0.5cm. Wounds are red with yellow, lily wound is pink/red, scant serous drainage noted. Skin erosion to distal Rt and Lt buttocks is much improved. Patient's R posterior thigh has light brown dry skin, appears to be from old resolving blister? Skin is intact, clean and dry with pink surrounding skin. Patient passed small amount of pasty stools, lily care given, applied Thera honey gauze to open wounds, applied Z Guard cream to lily wound and buttock. Covered wounds with Opti foam sacral dressing. New photograph of wounds are taken for reference. Patient tolerated, repositioned patient for comfort facing his Rt. side, redistributed pressure points with pillows. AMBREEN Carvajal at bedside. RECOMMENDATION: Add application of Thera honey gauze/honey gel to multi open wounds to sacrum per MD order, continuation of all other wound care orders prescribed by MD, continue with skin/wound plan of care, continue monitoring by wound care while patient is hospitalized. Addendum: 03/29/20 at 1230 by Martine Kahn RN Amended: Links added.
[2020-03-29] MEDS: cefTRIAXone 1GM/50ML D5W 50 ML IV SCH (11:16)
[2020-03-29] MEDS: ZINC SULFATE 220mg CAP or TAB PO SCH (11:16)
[2020-03-29] MEDS: APIXABAN 2.5 MG TAB PO SCH ×2 (11:17→23:12)
[2020-03-29] MEDS: FAMOTIDINE 20 MG TAB PO SCH (11:17)
[2020-03-29] MEDS: AMIODARONE HCL 200 MG TAB PO SCH ×2 (11:17→23:12)
[2020-03-29] MEDS: CARBIDOPA W LEVODOPA 25/100mg TABLET PO SCH ×2 (11:18→23:13)
[2020-03-29] MEDS: ASCORBIC ACID 1,000 MG TAB PO SCH (11:18)
[2020-03-29] MEDS: CHOLECALCIFEROL (VITD3) 1,000UNIT=25mCg TAB PO SCH (11:18)
[2020-03-29 12:25] VITALS: BP 117/64
--- NOTE | 2020-03-29 14:06 | NUR ---
Nutrition Followup Notes Pt wt is 64.4 kg. Pt is positive for COVID. pt is currently NPO on EN support with Jevity 1.2 ordered @ 50 ml/hr. Per RN note pt receiving TF at 50 ml/hr. Please update note to reflect pt receiving Osmolite 1.2 d/t to nationwide shortage of Jevity 1.2. Est Energy needs: 1615-8763 kcals (25-30 kcal/kgBW) d/t pt P/U, Est Protein needs: 93-116 gms/day (1.2-1.5 gm/kgBW) d/t pt P/U Will continue to monitor and reassess prn. LABS: BUN 67H, Creat 1.36H, Alb 2.2L, Ca 7.5L, GLUC 137H GI: Pt had 1 BM on 03/29 per RN doc. Noted pt on Vit C zn BS: 12 high risk pres ulcer. Refer to wound assessment report for full details. PES: 1) Inadequate vit/protein/energy intake r/t increased nutrient needs aeb compromised skin integrity 2) Altered nutrition related lab values r/t current medical condition aeb elev RFTs, low GFR, mod hypoalbuminemia Comments Will continue to monitor NPO status EN tolerance, skin status, pertinent labs and weight trends. Will f/u in 2-3 days. 1)Advance EN support with Osmolite @ 70 ml/hr per MD approval (Instead of Osmolite as jevity is on shortage) 2) Consider adding a daily MVI 3) If albumin continues trending down with improved RFTs, consider Prostat 1 pkt BID 4) resume diet as medically feasible 5) Continue current plan of care
[2020-03-29 17:23] VITALS: BP 126/78
--- NOTE | 2020-03-29 19:18 | NUR ---
Opening Shift Note Assumed care of patient. Patient resting with eyes closed at this time, on 6L of oxygen via NC with even and unlabored respirations, no S/S of distress/SOB or pain. Bed in lowest locked position, side rails up x2, and call light within reach. Instructed on POC and to call for assist PRN, will continue to monitor for changes Q1hr and PRN.
[2020-03-29] MEDS: ATORVASTATIN 20 MG TAB PO SCH (23:12)
[2020-03-29 23:15] VITALS: BP 110/68
[2020-03-30] MEDS: FREE WATER GT SCH ×6 (02:25→23:15)
[2020-03-30 05:32] VITALS: BP 98/59
[2020-03-30] MEDS: SODIUM CHLOR 0.9% PF (SALINE LOCK) 10ML VIAL/SYR IV SCH ×3 (06:05→23:17)
[2020-03-30] MEDS: CLINDAMYCIN 600MG IV 50 ML IV SCH ×4 (06:05→23:16)
[2020-03-30] MEDS: SALINE 0.65 % NASAL SPRAY 45ML BOTTLE EACHNOSTRI SCH ×4 (06:05→22:00)
[2020-03-30] MEDS: BUDESONIDE (INHALATION) 180 MCG IH IN SCH ×2 (07:20→22:00)
[2020-03-30 07:36] LABS: Calcium 7.6 mg/dL (8.5-10.1); Potassium 4.5 mmol/L (3.5-5.1)
[2020-03-30 07:40] LABS: BUN/Creatinine Ratio 44.3
[2020-03-30] MEDS: Jevity 1.2 Cal/Fiber 1 Liter GT SCH (08:38)
[2020-03-30] MEDS: ALBUTEROL SULF HFA 90MCG INH 200DOSE IN SCH ×2 (08:39→15:21)
[2020-03-30 09:00] VITALS: BP 106/57
[2020-03-30] MEDS: cefTRIAXone 1GM/50ML D5W 50 ML IV SCH (10:37)
[2020-03-30] MEDS: ZINC SULFATE 220mg CAP or TAB PO SCH (10:38)
[2020-03-30] MEDS: APIXABAN 2.5 MG TAB PO SCH ×3 (10:38→23:16)
[2020-03-30] MEDS: AMIODARONE HCL 200 MG TAB PO SCH ×3 (10:38→23:16)
[2020-03-30] MEDS: FAMOTIDINE 20 MG TAB PO SCH (10:39)
[2020-03-30] MEDS: CHOLECALCIFEROL (VITD3) 1,000UNIT=25mCg TAB PO SCH (10:39)
[2020-03-30] MEDS: CARBIDOPA W LEVODOPA 25/100mg TABLET PO SCH ×3 (10:39→23:15)
[2020-03-30] MEDS: ASCORBIC ACID 1,000 MG TAB PO SCH (10:39)
[2020-03-30 11:49] VITALS: BP 106/57
[2020-03-30 13:00] VITALS: BP 104/63
--- NOTE | 2020-03-30 13:42 | NUR ---
ENDORSED CARE TO AMBREEN HALE.
--- NOTE | 2020-03-30 13:44 | NUR ---
Assumed care of patient Patient sitting at side of bed with even and unlabored respirations, no distress noted. Call light within reach.
--- NOTE | 2020-03-30 14:30 | NUR ---
Oral care provided Patient tolerated well.
[2020-03-30 17:10] VITALS: BP 118/67
--- NOTE | 2020-03-30 18:30 | NUR ---
Oral care provided Patient tolerated well.
--- NOTE | 2020-03-30 18:44 | NUR ---
Patient refused scheduled nose spray Patient nodded head in a "no" motion. Education provided. Patient continued to refuse.
--- NOTE | 2020-03-30 18:45 | NUR ---
Residual = 20ml with large volume of air
--- NOTE | 2020-03-30 18:46 | NUR ---
Closing note Patient resting in bed in high-fowlers position with even and unlabored respirations, no distress noted. Fall precautions in place. Soft mitten to the left hand in place. NGT in place to the left nare with Jevity being administered per MD order. Bilateral bar boots in place. Patient is aphasic although will nod head in a "yes" or "no" motion to answer questions.
--- NOTE | 2020-03-30 19:14 | NUR ---
Opening Shift Note Assumed care of patient. Patient resting with eyes closed, on 6L of oxygen via NC with even and unlabored respirations, no S/S of distress/SOB or pain. Bed in lowest locked position, side rails up x2, and call light within reach. Instructed on POC and to call for assist PRN, will continue to monitor for changes Q1hr and PRN.
[2020-03-30 21:52] VITALS: BP 113/64
[2020-03-30] MEDS: ATORVASTATIN 20 MG TAB PO SCH ×2 (22:00→23:15)
--- NOTE | 2020-03-30 23:20 | NUR ---
CODE ASSIST IN ROOM PREPARING TO ADMINISTER MEDICATIONS. DURING THIS TIME THE PATIENT'S RESPIRATIONS BECAME SHALLOW AND THE RATE QUICKLY DECREASED. AT THE SAME TIME, SEVERAL RN'S AT THE NURSING STATION CAME INTO THE ROOM TO NOTIFY ME PATIENTS HR DROPPED BELOW 30. CODE ASSIST CALLED. PATIENT'S PULSES ARE WEAK AND THREADY, MINIMAL AROUSAL FROM VERBAL AND SHAKING STIMULI.
--- NOTE | 2020-03-30 23:22 | NUR ---
Code Blue note. Please see CODE sheets and Provider/MD notes regarding patient code. Family notified of code blue and updated on patient status post code. AFTER ROSC, PATIENT TRANSFERRED TO ICU BED 104.
[2020-03-30] MEDS ORDERED: ALBUMIN 5% 250 ML IV ONE (23:37)
[2020-03-30] MEDS ORDERED: MIDAZOLAM DRIP 50 mg/50mL 50 ML IV ONE (23:40)
[2020-03-30] MEDS ORDERED: NOREPINEPHRINE 8 MG/250ML KIT 250 ML IV ONE (23:40)
[2020-03-31] VITALS (39 sets, daily range): BP systolic 50–110; BP diastolic 32–68
--- NOTE | 2020-03-31 | NUR ---
NOTIFIED AND UPDATED AND SON OF PATIENTS CURRENT STATUS AND ROOM CHANGE, ANSWERED ALL QUESTIONS AND CONCERNS, VERBALIZED UNDERSTANDING AND WILL CALL LATER FOR MORE UPDATES.
[2020-03-31] MEDS: NOREPINEPHRINE 8 MG/250ML KIT 250 ML IV SCH ×2 (00:19→08:23)
[2020-03-31] MEDS ORDERED: MIDAZOLAM DRIP 50 mg/50mL 50 ML IV SCH (00:19)
--- NOTE | 2020-03-31 00:20 | NUR ---
Respiratory note: TRANSPORTED PT TO BED 104 IN ICU FROM BED 247A IN FULL PPE DUE TO COVID PRECAUTIONS. PLACED ON PT ON VENT V19, VENT CONNECTED TO RED OUTLET AND O2 SOURCE ALARMS ARE SET AND AUDIBLE. AMBU BAG AND MASK AT BEDSIDE. BS ARE COURSE SXD VIA ETT FOR LARGE AMOUNT OF THICK SIMMS SECRETIONS SPUTUM SAMPLE OBTAINED AND SENT TO LAB. WILL CONTINUE TO MONITOR.
--- NOTE | 2020-03-31 00:30 | NUR ---
Received pt from floor being bagged by RT. Pt connected to ICU monitoring and ventilator. Saturations at 95%. newspaper copy editor shows pt is in A-fib of a rapid rate of 150's to 170's. B/p 50/28. Levophed gtt started in 20g to left wrist. IV access obtained in three different locations; 22g to right wrist, 22g to right forearm and 20g to left forearm. SEE IV spreadsheet for titration gtt details Pt breathing in 30's with increased WOB. Versed gtt started. Thick alamo secretions suctioned out of pt mouth and ET tube.
[2020-03-31] MEDS ORDERED: ACETAMINOPHEN 650 mg PER 20 mL UD GT PRN (00:45)
--- NOTE | 2020-03-31 01:00 | NUR ---
Cleansed pt of moderate BM. three sacral wounds noted, cleansed and applied clean Optifoam to sites. Rectal temp probe inserted. Temp of 101.1. Tylenol given per MD order and cooling measures initiated.
[2020-03-31 01:29] LABS: Basophils # (auto) 0.1 10 ^3/uL (0-0.2); Basophils % (auto) 0.4 % (0.0-2.0); Eosinophils # (auto) 0.3 10 ^3/uL (0-0.8); Monocytes # (auto) 0.4 10 ^3/uL (0-1.3); Monocytes % (auto) 1.9 % (0.0-12.0); White Blood Cell 22.7 10^3/uL (4.4-10.8)
[2020-03-31 01:31] LABS: Eosinophils % (auto) 1.3 % (0.0-7.0); Hemoglobin 11.7 g/dL (13.5-17.5); Lymphocytes # (auto) 9.7 10 ^3/uL (0.4-5.4); Lymphocytes % (auto) 42.8 % (10.0-50.0); Mean Corpuscular Hemoglobin 33.4 pg (28.0-32.0); Mean Corpuscular Hgb Conc. 30.7 g/dL (32.0-36.0); Mean Corpuscular Volume 108.6 fL (80.0-100.0); Neutrophils # (auto) 12.2 10 ^3/uL (1.6-8.6); Neutrophils % (auto) 53.6 % (37.0-80.0); Nucleated Red Blood Cells % 0.1 %; Platelet Count (auto) 96 10^3/uL (140-450); Red Cell Distribution Width 14.4 % (11.8-14.3)
[2020-03-31 01:37] LABS: Albumin 1.7 g/dL (3.4-5.0); Anion Gap 8 (5-15); Blood Urea Nitrogen 54 mg/dL (7-18); Calcium 7.3 mg/dL (8.5-10.1); Carbon Dioxide 20 mmol/L (21-32); Chloride 117 mmol/L (98-107); Glucose 118 mg/dL (74-106); Potassium 5.2 mmol/L (3.5-5.1); Sodium 145 mmol/L (136-145)
[2020-03-31 01:39] LABS: Alanine Aminotransferase 185 U/L (16-61); Aspartate Aminotransferase 351 U/L (15-37); BUN/Creatinine Ratio 38.6; GFR African American 62 mL/min; GFR Non-African American 51 mL/min
[2020-03-31 01:41] LABS: Alkaline Phosphatase 171 U/L (45-117); Total Protein 5.4 g/dL (6.4-8.2)
--- NOTE | 2020-03-31 01:50 | NUR ---
Paged risk control director hospitalist regarding cardiac rhythm and HR. new order received; Amiodarone per protocol started
[2020-03-31] MEDS ORDERED: AMIODARONE HCL 150 MG in D5W 5% 100 ML IV ONE (02:00)
[2020-03-31] MEDS: FREE WATER GT SCH ×3 (02:00→10:15)
--- NOTE | 2020-03-31 02:00 | NUR ---
Spoke to patient's regarding change of condition and critical status. Pt's verbalized understanding at this time.
[2020-03-31] MEDS ORDERED: AMIODARONE 450mg/250ml AE 250 ML IV SCH ×2 (02:06→08:06)
[2020-03-31] MEDS ORDERED: fentaNYL Drip 2500mCg/250mlNS 250 ML IV SCH (02:26)
[2020-03-31] MEDS: CLINDAMYCIN 600MG IV 50 ML IV SCH ×2 (02:29→06:00)
[2020-03-31] MEDS ORDERED: SODIUM ZIRCONIUM CYCL 10 GM PAK PO ONE (02:30)
--- NOTE | 2020-03-31 02:30 | NUR ---
Paged hospitalist regarding pt's high respiratory rate and need for more sedation, Fentanyl order received. New order for Mohan pt's potassium 5.2
--- NOTE | 2020-03-31 03:36 | NUR ---
Respiratory note: VENT CHECK DONE BY PTS DOOR DUE TO COVID PRECAUTIONS. NO CHANGES DONE WILL CONTINUE TO MONITOR. CURRENT TEMP READS 100.4F.
[2020-03-31 04:42] LABS: Neutrophils # (auto) 15.9 10 ^3/uL (1.6-8.6)
[2020-03-31 04:44] LABS: Basophils # (auto) 0.2 10 ^3/uL (0-0.2); Basophils % (auto) 0.6 % (0.0-2.0); Eosinophils # (auto) 0 10 ^3/uL (0-0.8); Eosinophils % (auto) 0.1 % (0.0-7.0); Hemoglobin 10.9 g/dL (13.5-17.5); Lymphocytes # (auto) 11.3 10 ^3/uL (0.4-5.4); Lymphocytes % (auto) 40.6 % (10.0-50.0); Mean Corpuscular Hemoglobin 33.6 pg (28.0-32.0); Mean Corpuscular Hgb Conc. 31.9 g/dL (32.0-36.0); Mean Corpuscular Volume 105.2 fL (80.0-100.0); Monocytes # (auto) 0.5 10 ^3/uL (0-1.3); Monocytes % (auto) 1.8 % (0.0-12.0); Neutrophils % (auto) 56.9 % (37.0-80.0); Nucleated Red Blood Cells % 0.2 %; Platelet Count (auto) 88 10^3/uL (140-450); Red Blood Cells 3.24 10^6/uL (4.5-5.90); Red Cell Distribution Width 13.9 % (11.8-14.3); White Blood Cell 27.9 10^3/uL (4.4-10.8)
[2020-03-31 05:06] LABS: BUN/Creatinine Ratio 36.1; Calcium 7.3 mg/dL (8.5-10.1); Potassium 4.9 mmol/L (3.5-5.1)
[2020-03-31] MEDS: SODIUM CHLOR 0.9% PF (SALINE LOCK) 10ML VIAL/SYR IV SCH (06:00)
[2020-03-31] MEDS: SALINE 0.65 % NASAL SPRAY 45ML BOTTLE EACHNOSTRI SCH (06:00)
[2020-03-31] MEDS ORDERED: ALBUTEROL SULF 2.5 MG/0.5ML(0.5%) NEB SOLN NEB SCH (06:00)
--- NOTE | 2020-03-31 07:00 | NUR ---
Respiratory note: PT RECEIVED ON VENT # V19. PLUGGED INTO A RED OUTLET AND PROPER O2 SOURCE. AMBU BAG/MASK AT BEDSIDE. ETT SECURED WITH A HOLISTER.BILATERAL BS ARE CLEAR AND DIMINISHED THROUGHOUT. SUCTIONED WITH SMALL, PALE YELLOW RETURN. MED NEB TX GIVEN INLINE,TOLERATED. DO NOT ENTER FOR ONE HOUR SIGN POSTED ON DOOR AND RN ARLENE MADE AWARE. SKIN IS WARM AND DRY TO THE TOUCH WITH EDEMA NOTED ON ALL APPENDICULARS.POC: MAINTAIN ADEQUATE OXYGENATION,VENTILATION,AND PULMONARY HYGIENE.
--- NOTE | 2020-03-31 07:20 | NUR ---
CODE STATUS Patient's called for an update about patient. Spoke with the patient's , Brandee Gil, about what the patient would want and she stated the patient would not want to be on life support. Code status changed to DNR with continuing current medications/care. If heart were to stop, do not code. AMBREEN Love went over in detail with the patient about the code sheet and what her wishes were as far as code status with the patient. Patient's verbalized understanding. Witnessed by two RN's.
[2020-03-31] MEDS: CARBIDOPA W LEVODOPA 25/100mg TABLET PO SCH ×2 (09:30→10:00)
--- NOTE | 2020-03-31 09:40 | NUR ---
Respiratory note: TITRATED FIO2 TO 90%, PT TOLERATING CHANGE WELL.RN ARLENE MADE AWARE OF CHANGE.BILATERAL BS ARE CLEAR AND DIMINISHED, SUCTIONED WITH SCANT RETURN.ALARMS VERIFIED AND AUDIBLE. WILL CONTINUE TO MONITOR ORDERED.
[2020-03-31] MEDS: AMIODARONE HCL 200 MG TAB PO SCH (10:00)
[2020-03-31] MEDS: CHOLECALCIFEROL (VITD3) 1,000UNIT=25mCg TAB PO SCH (10:00)
[2020-03-31] MEDS: FAMOTIDINE 20 MG TAB PO SCH (10:00)
[2020-03-31] MEDS: ASCORBIC ACID 1,000 MG TAB PO SCH (10:00)
[2020-03-31] MEDS: ZINC SULFATE 220mg CAP or TAB PO SCH (10:15)
[2020-03-31] MEDS: APIXABAN 2.5 MG TAB PO SCH (10:15)
[2020-03-31] MEDS: cefTRIAXone 1GM/50ML D5W 50 ML IV SCH (10:47)
--- NOTE | 2020-03-31 11:05 | NUR ---
FAMILY AT BEDSIDE PER SANTO, ICU DIRECTOR AUTHORIZATION, PATIENT'S SPOUSE ALLOWED TO ENTER ROOM AND BE AT BEDSIDE AFTER DONNING PPE. HOSPITALIST DR ALANIZ AT BEDSIDE AND UPDATED PATIENT'S SON AND SPOUSE ON PATIENT'S MEDICAL CONDITION AT THIS TIME. FAMILY VERBALIZED UNDERSTANDING - DNR PREVIOUSLY SIGNED.
[2020-03-31] MEDS ORDERED: MORPHINE SULF INJ 2 MG/ML SYRINGE 1ML IV PRN (11:30)
[2020-03-31] MEDS ORDERED: LORazepam 2MG/ML-1ML VIAL IV PRN (11:30)
--- NOTE | 2020-03-31 11:36 | NUR ---
Nutrition Followup Notes Pt wt is 66.4 kg. Pt is positive for COVID. pt is currently NPO on EN support with Jevity 1.2 ordered @ 50 ml/hr. Per RN note pt receiving TF at 50 ml/hr. Please update note to reflect pt receiving Osmolite 1.2 d/t to nationwide shortage of Jevity 1.2. Per RN note pt received 300 ml of TF 03/30. Consider feeding per MD approval. Est Energy needs: 0931-5496 kcals (25-30 kcal/kgBW) d/t pt P/U, Est Protein needs: 93-116 gms/day (1.2-1.5 gm/kgBW) d/t pt P/U Will continue to monitor and reassess prn. LABS: BUN 65H, Creat 1.80H, GLUC 142H, Ca 7.3L, Alb 1.7L GI: Pt had 1 BM on 03/31 per RN doc. Noted pt on Vit C zn BS: 11 high risk pres ulcer. Refer to wound assessment report for full details. PES: 1) Inadequate vit/protein/energy intake r/t increased nutrient needs aeb compromised skin integrity 2) Altered nutrition related lab values r/t current medical condition aeb elev RFTs, low GFR, mod hypoalbuminemia Comments Will continue to monitor NPO status EN tolerance, skin status, pertinent labs and weight trends. Will f/u in 2-3 days. 1)Advance EN support with Osmolite @ 70 ml/hr per MD approval (Instead of Osmolite as jevity is on shortage) 2) Consider adding a daily MVI 3) If albumin continues trending down with improved RFTs, consider Prostat 1 pkt BID 4) resume diet as medically feasible 5) Continue current plan of care
--- NOTE | 2020-03-31 12:30 | NUR ---
Respiratory note: PT TERMINALLY EXTUBATED BY RT, PER FAMILIES REQUEST AND WITH DR BENAVIDES ORDER.
--- NOTE | 2020-03-31 13:03 | NUR ---
CONTACT MORTUARY [facility] FAMILY REQUEST, SPOKE WITH BALDEV - ALL REQUESTED INFORMATION PROVIDED. BALDEV STATED "WE WILL NOT BE ABLE TO SANDBLAST OPERATOR THE BODY UNTIL MONDAY, I WILL BE CONTACTING FAMILY". FAMILY NOTIFIED.
--- NOTE | 2020-03-31 13:16 | NUR ---
CONTACT [facility] TO REPORT PATIENT . SPOKE WITH ABDIEL PROVIDED REQUESTED INFORMATION BODY RELEASE AND REFERRAL ID# [id number].
--- NOTE | 2020-03-31 13:21 | NUR ---
ASKED BY DR. ALANIZ TO PRONOUNCE PT PT ADMITTED 03/13, TESTED POS FOR COVID. ON 03/30 PT CODED, SUCCESSFULLY RESUSCITATED, INTUBATED PT MADE DNR 03/31 AND TERMINALLY WEANED AT 1230 PT FOUND PULSELESS AND APNEIC. ASYSTOLE IN 3 LEADS ABSENCE OF PULSE AND RESP AFTER 1 FULL MINUTE OF AUSCULTATION NO DTR'S, GAG OR CORNEAL REFLEXES. TOD [id number]
--- NOTE | 2020-03-31 13:28 | NUR ---
CONTACT [facility] OFFICE/BODY RELEASED SPOKE WITH KELLY, PROVIDED REQUESTED INFORMATION. THIS NURSE WAS AWAITING RESPONSE, Nhan WIGGINS WAS SPEAKING WITH OUTSIDE PLANT SUPERVISOR REGARDING OTHER PATIENT AND STATED MUMTAZ CARMELO RELEASED ALL BODIES WITH NO CASE NUMBER STATING "THERE IS NOT ENOUGH STAFF AND TOO MANY PATIENT'S ARE PASSING, TO BE REPORTED BY MORTUARY".
[2020-03-31] MEDS ORDERED: SODIUM BICARBONATE 8.4% INJ 50ML SYRINGE IV ONE (17:29)
[2020-03-31] MEDS ORDERED: EPINEPHrine HCL 1 MG/10 ML SYRG IV ONE (17:29)
--- NOTE | 2020-03-31 17:44 | NUR ---
BODY TAKEN TO [facility] AND [facility] NOTIFIED THIS NURSE THAT THEY WILL BE PICKING BODY UP "LATER TONIGHT, OK TO GO TO THE [facility]". PATIENT'S BODY TRANSFERRED TO [facility] ACCOMPANIED BY SECURITY AND EVS FOR COVID 19 PRECAUTIONS. ALL PERSONAL BELONGINGS TAKEN HOME BY FAMILY INCLUDING YELLOW BAND.
== END 2020-03-31 17:30 | disposition expired | DRG 871 ==
LOC: ER 16:50 → EDBD 16:50 → TELE 16:51 → UNDOADMIN 16:51 → TELE-E-ADS 16:51 → TELE 03-15 00:11 → DOU IN ICU 03-16 19:00 → TELE-EAST 03-25 13:16 → ICU WEST 03-30 23:47
PROVIDERS: ADMIT Internal Medicine; ATTEND Internal Medicine
PROC: 30233K1 Transfusion of Nonautologous Frozen Plasma into Peripheral Vein, Percutaneous Approach (ICD-10-PCS; principal; 2020-03-20)
PROC: 5A1935Z Respiratory Ventilation, Less than 24 Consecutive Hours (ICD-10-PCS; 2020-03-31)
PROC: 5A12012 Performance of Cardiac Output, Single, Manual (ICD-10-PCS; 2020-03-31)
PROC: 0BH17EZ Insertion of Endotracheal Airway into Trachea, Via Natural or Artificial Opening (ICD-10-PCS; 2020-03-31)
DX: A41.89 Other specified sepsis (principal); U07.1 COVID-19; J12.89 Other viral pneumonia; N17.0 Acute kidney failure with tubular necrosis; I63.9 Cerebral infarction, unspecified; J96.01 Acute respiratory failure with hypoxia; I50.41 Acute combined systolic (congestive) and diastolic (congestive) heart failure; N39.0 Urinary tract infection, site not specified; E44.0 Moderate protein-calorie malnutrition; E87.0 Hyperosmolality and hypernatremia; C91.10 Chronic lymphocytic leukemia of B-cell type not having achieved remission; I48.19 Other persistent atrial fibrillation; L89.322 Pressure ulcer of left buttock, stage 2; I50.82 Biventricular heart failure; G20 Parkinson's disease; H53.461 Homonymous bilateral field defects, right side; H57.02 Anisocoria; Z68.22 Body mass index [BMI] 22.0-22.9, adult; Z88.0 Allergy status to penicillin; Z51.5 Encounter for palliative care; F17.200 Nicotine dependence, unspecified, uncomplicated; I11.0 Hypertensive heart disease with heart failure; Z86.73 Personal history of transient ischemic attack (TIA), and cerebral infarction without residual deficits; Z85.46 Personal history of malignant neoplasm of prostate; Z66 Do not resuscitate
CPT/HCPCS: 36415; 36600; 70450; 71045; 80048; 80053; 80061; 80202; 81001; 82550; 82728; 82805; 82962; 83605; 83615; 83735; 83880; 84100; 84443; 84484; 84550; 85007; 85025; 85027; 85379; 85610; 85652; 85730; 86141; 86850; 86900; 86901; 87040; 87070; 87077; 87086; 87186; 87205; 87804; 87880; 92950; 93005; 93306; 93886; 94003; 94640; 97110; 97163; 97530; G0378; J0696; J1100; J1956; J2185; J2250; J3430; J3490; J7060